=== PATIENT | female | born 1995 | race Hispanic/Latino ===

== ENCOUNTER 2020-07-23 22:20 | Emergency (ER) | payer SELFPAY, OTHER ==
[2020-07-23] MEDS ORDERED: PANTOPRAZOLE 40 MG INJ ONE (23:18)
[2020-07-23] MEDS ORDERED: ONDANSETRON 4 MG/2 ML VIAL ONE (23:18)
[2020-07-24 00:10] LABS: Absolute Lymphocytes (CBC) 2.7 K/uL (0.7-4.9); Hematocrit 39.5 % (36.0-45.0); Lymphocytes % 30.6 % (15.3-44.8); MPV 11.6 fL (7.6-11.3); RBC Red Blood Cell Count 4.83 M/uL (3.86-4.86)
[2020-07-24 00:25] LABS: Albumin 4.5 g/dL (3.4-5.0); Bilirubin Direct 0.3 mg/dL (0-0.2); Potassium 3.2 mmol/L (3.5-5.1); Protein, Total 8.8 g/dL (6.4-8.2)
[2020-07-24] MEDS ORDERED: MAGNE/ALUM HYDROXD 30 ML UCUP ONE (00:30)
[2020-07-24] MEDS ORDERED: LIDOCAINE VISCOUS 2% SOLN 15 ML UDC ONE (00:30)
[2020-07-24 00:44] LABS: Urine Blood NEGATIVE (NEG); Urine Glucose NEGATIVE (NEG); Urine Protein 2+ (NEG); Urine pH 8.5 (5.0-7.0)
[2020-07-24] MEDS ORDERED: NA CHLORIDE 0.9% 1,000 ML ONE (02:05)
--- NOTE | 2020-07-24 02:50 | ER ---
Nurse's Notes [facility] Name: Juany Payne Age: 24 yrs Sex: Female : 1995 Arrival Date: 07/23/2020 Time: 22:22 Bed 8 Private MD: Diagnosis: Vomiting Presentation: 07/23 22:23 Acuity: HARI 3 sg 22:23 Chief complaint: Patient states: Coughing up blood, pink spit, reports chills as well. sg Coronavirus screen: Client denies travel out of the [place] in the last 14 days. cough unrelated to allergies, Client presents with at least one sign or symptom that may indicate coronavirus-19. Standard/surgical mask placed on the client. Provider contacted for isolation considerations. Ebola Screen: Patient negative for fever greater than or equal to 101.5 degrees Fahrenheit, and additional compatible Ebola Virus Disease symptoms Patient denies exposure to infectious person. Patient denies travel to an Ebola-affected area in the 21 days before illness onset. No symptoms or risks identified at this time. Initial Sepsis Screen: Does the patient meet any 2 criteria? No. Patient's initial sepsis screen is negative. Does the patient have a suspected source of infection? No. Patient's initial sepsis screen is negative. Risk Assessment: Do you want to hurt yourself or someone else? Patient reports no desire to harm self or others. Onset of symptoms was July 23, 2020. Care prior to arrival: None. Transition of care: patient was not received from another setting of care. 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 - Social history:: Smoking status: Patient denies any tobacco usage or history of. Screenin:41 Abuse screen: Denies threats or abuse. Denies injuries from another. Nutritional rr5 screening: No deficits noted. Tuberculosis screening: No symptoms or risk factors identified. Fall Risk IV access (20 points). Mental Status- Oriented to own ability (0 pts). Total Adair Fall Scale indicates No Risk (0-24 pts). Assessment: 23:30 General: Appears in no apparent distress. comfortable, Behavior is calm, cooperative, rr5 anxious. Pain: Complains of pain in epigastric area Pain currently is 3 out of 10 on a pain scale. Quality of pain is described as aching, Pain began gradually, Is intermittent. Neuro: Level of Consciousness is awake, alert, obeys commands, Oriented to person, place, time, situation. Cardiovascular: Capillary refill < 3 seconds Patient's skin is warm and dry. Respiratory: Reports cough that is with blood Airway is patent Respiratory effort is even, unlabored, Respiratory pattern is regular, symmetrical. GI: Abdomen is round non-distended, Reports upper abdominal pain, nausea, vomiting. : No signs and/or symptoms were reported regarding the genitourinary system. EENT: No signs and/or symptoms were reported regarding the EENT system. Derm: Skin is intact, is healthy with good turgor, Skin temperature is warm. Musculoskeletal: Circulation, motion, and sensation intact. Capillary refill < 3 seconds. 07/24 00:21 Reassessment: Patient and/or family updated on plan of care and expected duration. Pain rr5 level reassessed. complaints of severe abdominal pain ED provider aware with order made and carried out. 01:13 Reassessment: Patient appears in no apparent distress at this time. resting on side rr5 lying position breathing spontaneously at room air. 02:00 Reassessment: Patient appears in no apparent distress at this time. Patient is alert, rr5 oriented x 3, equal unlabored respirations, skin warm/dry/pink. awaiting for result. 03:06 Reassessment: Patient appears in no apparent distress at this time. Patient is alert, rr5 oriented x 3, equal unlabored respirations, skin warm/dry/pink. discharge instruction given and explained without complaints made. Vital Signs: 07/23 23:15 BP 119 / 74; Pulse 74; Resp 16; Temp 98.6; Pulse Ox 100% ; Pain 3/10; rr5 07/24 00:22 BP 126 / 85; Pulse 70; Resp 19; Pulse Ox 99% ; Pain 10/10; rr5 01:13 BP 110 / 72; Pulse 62; Resp 16; Pulse Ox 99% ; rr5 02:00 BP 116 / 89; Pulse 70; Resp 17; Pulse Ox 98% ; rr5 03:10 BP 115 / 70; Pulse 75; Resp 16; Pulse Ox 99% ; rr5 ED Course: 07/23 22:22 Patient arrived in ED. mr 22:23 Triage completed. sg 22:23 Arm band placed on. sg 22:37 Joe Quarles PA is PHCP. cp 22:37 Epifanio Lawson MD is Attending Physician. cp 22:40 Elmer Chow RN is Primary Nurse. rv 23:30 Inserted saline lock: 20 gauge in right antecubital area, using aseptic technique. rr5 Blood collected. 23:41 Patient has correct armband on for positive identification. Bed in low position. Call rr5 light in reach. Pulse ox on. NIBP on. 07/24 02:04 CT Abd/Pelvis - IV Contrast Only In Process Unspecified. EDMS 03:12 No provider procedures requiring assistance completed. IV discontinued, intact, rr5 bleeding controlled, No redness/swelling at site. Pressure dressing applied. Administered Medications: 07/23 23:30 Drug: Zofran (Ondansetron) 4 mg Route: IVP; Site: right antecubital; rr5 07/24 00:30 Follow up: Response: No adverse reaction rr5 07/23 23:32 Drug: ProTONIX 40 mg Route: IVP; Site: right antecubital; rr5 07/24 00:30 Follow up: Response: No adverse reaction rr5 00:21 Drug: GI Cocktail without - (Maalox Suspension 30 ml, Lidocaine Liquid 2 % 15 rr5 ml) Route: PO; 01:20 Follow up: Response: No adverse reaction rr5 02:05 Drug: NS 0.9% 1000 ml Route: IV; Rate: 1 bolus; Site: right antecubital; rr5 03:12 Follow up: Response: No adverse reaction; IV Status: Completed infusion; IV Intake: rr5 1000ml Intake: 03:12 IV: 1000ml; Total: 1000ml. rr5 Outcome: 02:49 Discharge ordered by . tw4 03:12 Discharged to home ambulatory. rr5 03:12 Condition: stable 03:12 Discharge instructions given to patient, Instructed on discharge instructions, follow up and referral plans. medication usage, Demonstrated understanding of instructions, follow-up care, medications, Prescriptions given X 1. 03:13 Patient left the ED. rr5 Signatures: Dispatcher [employer] EDMS Catalino Hunter, RN RN sg Sheikh, Maryse mr Robina, NAVI Diaz cp, Terrence, MD MD tw4 Elmer Chow, RN RN rv Reynold Ornelas RN RN rr5
--- NOTE | 2020-07-24 02:50 | EDPHYS ---
Physician Documentation [facility] Name: Juany Payne Age: 24 yrs Sex: Female : 1995 Arrival Date: 07/23/2020 Time: 22:22 Bed 8 Private MD: ED Physician Epifanio Lawson HPI: 07/23 22:54 This 24 yrs old Female presents to ER via Ambulatory with complaints of cp Vomiting. 22:54 The patient presents to the emergency department with nausea, with "dry heaves", cp vomiting, that is intermittent, abdominal pain, of the epigastric area. 22:54 Onset: The symptoms/episode began/occurred for past several months. Possible causes: cp diagnosed with gastritis in past. Associated signs and symptoms: Pertinent positives: anorexia, belching, dysphagia to solids, approximately 80 pound weight loss since beginning of year, Pertinent negatives: constipation, diarrhea, fever, GI bleeding. Severity of symptoms: in the emergency department the symptoms are unchanged despite home interventions. 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 - Social history:: Smoking status: Patient denies any tobacco usage or history of. ROS: 22:55 Constitutional: Positive for poor PO intake, weight loss. cp 22:55 Cardiovascular: Negative for chest pain. 22:55 Respiratory: Negative for cough, shortness of breath, wheezing. 22:55 Abdomen/GI: Positive for nausea and vomiting, anorexia, Negative for abdominal pain, diarrhea, constipation, black/tarry stool, rectal bleeding. Exam: 23:00 Constitutional: The patient appears in no acute distress, alert, awake, non-toxic, well cp developed, well nourished. 23:00 Head/Face: Normocephalic, atraumatic. cp 23:00 Eyes: Periorbital structures: appear normal, Conjunctiva: normal, no exudate, no cp injection, Sclera: no appreciated abnormality, Lids and lashes: appear normal, bilaterally. 23:00 ENT: External ear(s): are unremarkable, Nose: is normal, Posterior pharynx: Airway: no evidence of obstruction, patent. 23:00 Chest/axilla: Inspection: normal, Palpation: is normal, no crepitus, no tenderness. cp 23:00 Cardiovascular: Rate: normal, Rhythm: regular, Edema: is not appreciated, JVD: is not appreciated. 23:00 Respiratory: the patient does not display signs of respiratory distress, Respirations: normal, no use of accessory muscles, no retractions, labored breathing, is not present, Breath sounds: are clear throughout, no decreased breath sounds, no wheezing. 23:00 Abdomen/GI: Inspection: abdomen appears normal, Bowel sounds: active, all quadrants, Palpation: soft, in all quadrants, mild abdominal tenderness, in the epigastric area, rebound tenderness, is not appreciated, voluntary guarding, is not appreciated, involuntary guarding, is not appreciated. 23:00 Back: pain, is absent, ROM is normal. 23:00 Skin: no rash present. 23:00 Neuro: Orientation: to person, place \\T\\ time. Mentation: is normal. Vital Signs: 23:15 BP 119 / 74; Pulse 74; Resp 16; Temp 98.6; Pulse Ox 100% ; Pain 3/10; rr5 08 00:22 BP 126 / 85; Pulse 70; Resp 19; Pulse Ox 99% ; Pain 10/10; rr5 01:13 BP 110 / 72; Pulse 62; Resp 16; Pulse Ox 99% ; rr5 02:00 BP 116 / 89; Pulse 70; Resp 17; Pulse Ox 98% ; rr5 03:10 BP 115 / 70; Pulse 75; Resp 16; Pulse Ox 99% ; rr5 MDM: 07/23 22:39 Patient medically screened. 07/24 00:00 Differential diagnosis: Nonspecific abd pain, gastritis, cholecystitis, pancreatitis, cp gastroenteritis. 02:15 Data reviewed: vital signs, nurses notes, lab test result(s), I have discussed the cp patient's presentation/case with the attending Emergency Department Physician;. 02:15 Transition of care: After a detail discussion of the patient's case, care is cp transferred to Epifanio Lawson MD. 07/23 22:57 Order name: Basic Metabolic Panel; Complete Time: 00:52 cp 07/23 22:57 Order name: CBC with Diff; Complete Time: 00:14 cp 07/24 00:15 Interpretation: Normal except: RDW 16.4; MPV 11.6. cp 07/23 22:57 Order name: Hepatic Function; Complete Time: 00:52 cp 07/23 22:57 Order name: Lipase; Complete Time: 00:52 cp 07/23 23:35 Order name: Urine Dipstick--Ancillary (enter results); Complete Time: 00:52 mw2 07/23 23:35 Order name: Urine --Ancillary (enter results); Complete Time: 00:52 mw2 07/23 22:57 Order name: IV Saline Lock; Complete Time: 23:36 cp 07/23 22:57 Order name: Labs collected and sent; Complete Time: 23:36 cp 07/23 22:57 Order name: Urine Dipstick-Ancillary (obtain specimen); Complete Time: 23:36 cp 07/24 00:17 Order name: CT Abd/Pelvis - IV Contrast Only cp 07/23 22:57 Order name: Urine Test (obtain specimen); Complete Time: 23:36 cp Administered Medications: 07/23 23:30 Drug: Zofran (Ondansetron) 4 mg Route: IVP; Site: right antecubital; rr5 07/24 00:30 Follow up: Response: No adverse reaction rr5 07/23 23:32 Drug: ProTONIX 40 mg Route: IVP; Site: right antecubital; rr5 07/24 00:30 Follow up: Response: No adverse reaction rr5 00:21 Drug: GI Cocktail without - (Maalox Suspension 30 ml, Lidocaine Liquid 2 % 15 rr5 ml) Route: PO; 01:20 Follow up: Response: No adverse reaction rr5 02:05 Drug: NS 0.9% 1000 ml Route: IV; Rate: 1 bolus; Site: right antecubital; rr5 03:12 Follow up: Response: No adverse reaction; IV Status: Completed infusion; IV Intake: rr5 1000ml Disposition: 02:48 Co-signature as Attending Physician, Epifanio Lawson MD I agree with the assessment and tw4 plan of care. Disposition: 07/24/20 02:49 Discharged to Home. Impression: Vomiting. - Condition is Stable. - Discharge Instructions: Nausea and Vomiting, Adult. - Prescriptions for Zofran 4 mg Oral Tablet - take 1 tablet by ORAL route every 12 hours As needed; 20 tablet. - Medication Reconciliation Form, Thank You Letter, Antibiotic Education, Prescription Opioid Use form. - Follow up: Private Physician; When: Upon discharge from the Emergency Department; Reason: Recheck today's complaints, Continuance of care, Re-evaluation by your physician. - Problem is new. - Symptoms have improved. Signatures: Dispatcher [employer] EDMS Catalino Hunter RN RN sg Jeo Quarles PA PA cp Wadley, Terrence, MD MD tw4 Reynold Ornelas RN RN rr5 Corrections: (The following items were deleted from the chart) 03:13 02:49 07/24/2020 02:49 Discharged to Home. Impression: Vomiting. Condition is Stable. rr5 Forms are Medication Reconciliation Form, Thank You Letter, Antibiotic Education, Prescription Opioid Use. Follow up: Private Physician; When: Upon discharge from the Emergency Department; Reason: Recheck today's complaints, Continuance of care, Re-evaluation by your physician. Problem is new. Symptoms have improved. tw4
[2020-07-24 03:26] VITALS: TEMP 98.6
[2020-07-24 03:40] VITALS: BP 115/70; O2SAT 99
--- NOTE | 2020-07-24 12:56 | RAD REPORT ---
EXAM DESCRIPTION: CT - Abdomen Pelvis W Contrast - 07/24/2020 6:49 am CLINICAL HISTORY: ABD PAIN TECHNIQUE: Contiguous axial images obtained through the abdomen and pelvis following the uneventful administration of IV contrast. Coronal and sagittal reformatted images were provided. This exam was performed according to our departmental dose-optimization program, which includes autom ated exposure control, adjustment of the mA and/or kV according to patient size and/or use of iterati ve reconstruction technique. COMPARISON: None available for comparison. FINDINGS: Lung bases: Clear Liver: Unremarkable Gallbladder and biliary system: Unremarkable Pancreas: Unremarkable Spleen: Unremarkable Adrenals: Unremarkable Kidneys: Normal renal cortical enhancement. No calculi. No hydronephrosis. Bowel: Moderate stool. No obstruction. No appreciable mucosal thickening. Appendix: Normal caliber appendix. No findings to suggest acute appendicitis. Urinary bladder: Unremarkable Reproductive: Unremarkable as visualized Lymph nodes: No pathologically enlarged lymph nodes. Peritoneum: No focal fluid collection. No free air. Vessels: No abdominal aortic aneurysm. Abdominal wall: Tiny fat-containing umbilical hernia Bones: Multilevel lumbar disc bulges and prominence of the dorsal epidural fat. The central thecal sa c is mildly to moderately narrowed at L2-L3 and to a lesser extent at L4-L5. IMPRESSION: 1. No acute abnormality identified within the abdomen and pelvis. 2. Other findings as above. Electronically signed by: Judi Hudson MD 07/24/2020 2:20 AM CDT Due to temporary technical issues with the PACS/Fluency reporting system, reports are being signed by the in house radiologist without review as a courtesy to ensure prompt reporting. The interpreting r adiologist is fully responsible for the content of the report.
--- OUTSIDE RECORDS SUMMARY | 2020-07-24 22:37 | XMS REPORT | Clinical Summary ---
:[address] [facility] Distr ict Address [facility] [place] [address] Care Team Providers Name Role Phone Unavailable Primary Care Provider Unavailable Allergies No Known Allergies Medications Medication Sig Dispensed Refills Start Date End Date Status norgestimate-ethiny TAKE ONE (1) 0 12/05/2019 Active l estradiol TABLET(S) BY (FEMYNOR) 0.25-35 MOUTH ONCE A mg-mcg per tablet DAY FOR 28 DAYS. TAKE AT THE SAME TIME EACH DAY. famotidine (PEPCID) Take 1 14 tablet 0 01/18/2020 Active 20 mg tablet by tabletIndications: mouth 2 Epigastric pain times daily. acetaminophen-codei Take 1 20 tablet 0 12/21/2017 Discontinued ne (TYLENOL/CODEINE tablet by 0 (Therapy #3) 300-30 mg per mouth every completed) tabletIndications: 4 hours as Acute lymphadenitis needed for Pain. amoxicillin Take 1 20 capsule 0 12/05/2019 d (AMOXIL) 500 mg capsule by 0 capsuleIndications: mouth 2 Streptococcal times daily pharyngitis for 10 days. ondansetron (ZOFRAN Take 1 20 tablet 0 01/18/2020 ODT) 4 mg tablet by 0 disintegrating mouth every tabletIndications: 8 hours as Nausea needed for up to 7 days for Nausea. 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 throat; BMI 40.0-44.9, adult; Encounter to [facility] lab and imaging results; Elevated blood pressure reading without diagnosis of hypertension 12/05/2019 Nurse Triage Amber Jarquin RN 12/04/2019 - Emergency Emergency Medicine Generaliz ed abdominal 12/05/2019 pain (Primary D x) after 07/23/2019 Immunizations Name Administration Dates Next Due Influenza, Seasonal, Injectable 12/05/2019 (Deferred: Contra indication) Social History Tobacco Use Types Packs/Day Years Used Date Never Smoker Smokeless Tobacco: Never Used Tobacco Cessation: Counseling Given: No Alcohol Use Drinks/Week oz/Week Comments No Sex Assigned at Date Recorded Not on file Job Start Date Occupation Industry Not on file Not on file Not on file Travel History Travel Start Travel End No recent travel history available. 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 URINALYSIS STAT 01/18/2020 10:35 Results for this AM CDT procedure are i n the results section. CT ABDOMEN AND STAT 01/18/2020 9:14 Epigastric pain Result s for this PELVIS CONTRAST AM CDT procedure ar e in the results section. POCT URINE DIPSTICK STAT 01/18/2020 8:53 Resu lts for this - AM CDT procedure are i n the results section. BMP POC Routine 01/18/2020 6:48 Results for this AM CDT procedure are i n the results section. CREATININE POC Routine 01/18/2020 6:48 Results f or this AM CDT procedure are i n the results section. D-DIMER STAT 01/18/2020 6:44 Results for this AM CDT procedure are i n the results section. CBC STAT 01/18/2020 6:44 Results for this AM CDT procedure are i n the results section. LIVER PROFILE STAT 01/18/2020 6:44 Results fo r this AM CDT procedure are i n the results section. LIPASE STAT 01/18/2020 6:44 Results for this AM CDT procedure are i n the results section. CBC/DIFF STAT 01/18/2020 6:44 Results for this AM CDT procedure are i n the results section. XRAY CHEST 1 VIEW STAT 01/18/2020 6:28 Shortness of breath Results for this AM CDT procedure are i n the results section. POC GROUP A STREP Routine 12/05/2019 3:40 Sore throat Result s for this SCREEN PM DOG BEHAVIORIST procedure are i n the results section. U/S ABDOMEN LIMITED STAT 12/04/2019 8:18 Generalized Resu lts for this PM DOG BEHAVIORIST abdominal pain procedure are in the results section. URINALYSIS STAT 12/04/2019 5:35 Results for this PM DOG BEHAVIORIST procedure are i n the results section. TEST STAT 12/04/2019 5:35 Results f or this PM DOG BEHAVIORIST procedure are i n the results section. URINALYSIS STAT 12/04/2019 5:35 Results for this PM DOG BEHAVIORIST procedure are i n the results section. BMP POC Routine 12/04/2019 4:51 Results for this PM DOG BEHAVIORIST procedure are i n the results section. CREATININE POC Routine 12/04/2019 4:50 Results f or this PM DOG BEHAVIORIST procedure are i n the results section. CBC STAT 12/04/2019 4:41 Results for this PM DOG BEHAVIORIST procedure are i n the results section. HIV AG/AB COMBO STAT 12/04/2019 4:41 Results for this ROUTINE SCREENING PM DOG BEHAVIORIST procedure are in the results section. LIPASE STAT 12/04/2019 4:41 Results for this PM DOG BEHAVIORIST procedure are i n the results section. LIVER PROFILE STAT 12/04/2019 4:41 Results fo r this PM DOG BEHAVIORIST procedure are i n the results section. CBC/DIFF STAT 12/04/2019 4:41 Results for this PM DOG BEHAVIORIST procedure are i n the results section. after 07/23/2019 Results Urinalysis (01/18/2020 10:35 AM CDT)Only the most recent of2 resultswithin the time period is included. Color Yellow Colorless, Straw, [facility] Yellow Clarity Clear Clear [facility] Spec [place], Ur >1.035 (H) 1.001 - 1.035 [facility] pH, Ur 7.0 5.0 - 8.0 [facility] Protein, Ur Negative Negative mg/dL [facility] Glucose, Ur Negative Negative mg/dL [facility] Ketone, Ur 1+ (A) Negative mg/dL [facility] Bilirubin, Ur Negative Negative mg/dL [facility] Nitrite, Ur Negative Negative [facility] Leukocyte Negative Negative mg/dL [facility] Blood, Ur Negative Negative mg/dL [facility] Urobilinogen, Ur <1.0 <1.0 EU/dL [facility] Specimen Urine Performing Organization Address City/State/Zipcode Phone Number [facility] [address] [place] [address] [phone] ABDOMEN AND PELVIS CONTRAST (01/18/2020 9:14 AM CDT) Specimen Impressions Performed At IMPRESSION: SMS No acute inflammatory process in the abd omen/pelvis. A "PRELIMINARY" report was made availabl e via [employer] at the time of dictation by the resident indicated belo w. If the report is described as "FINALIZED" it indicates the attending/s taff radiologist below has reviewed the images and agrees with the resident's interpretation. Resident: Dr.Vikramjeet Al. Dictated By: Tucker Al MD, 01/18/20 11:01 AM I have reviewed the study and agree with the findings in this report. Signed By: Haider Zambrano MD, 01/18/2020 11 :16 AM Narrative Performed At EXAM: CT Abdomen and Pelvis WITH contras t SMS INDICATION: Abd pain, acute, generalized COMPARISON: Abdominal ultrasound 12/04/19 TECHNIQUE: Abdomen and pelvis were scann ed utilizing a multidetector helical scanner from the lung base to th e pubic symphysis after administration of IV contrast. Coronal a nd sagittal reformations were obtained. Routine protocol was performed . Scan was performed when during portal venous phase. IV CONTRAST: 100 mL of Omnipaque 300 ORAL CONTRAST: Water COMPLICATIONS: None RADIATION DOSE: Total DLP: 1992 mGy*cm Estimated effective dose: (DLP x 0.015 x size factor) mSv CTDIvol has been reviewed. It is below the limits set by the Radiation Protocol Committee (RPC). FINDINGS: LINES and TUBES: None. LOWER THORAX: Unremarkable HEPATOBILIARY: No focal hepatic lesions. No biliary ductal dilation. GALLBLADDER: No radio-opaque stones or s ludge. No wall thickening. SPLEEN: No splenomegaly. Two left upper quadrant splenules. PANCREAS: No focal masses or ductal dila tation. ADRENALS: No adrenal nodules KIDNEYS/URETERS: Kidneys enhance symmetr ically. No hydronephrosis. No cystic or solid mass lesions. No stone s. GI TRACT: No abnormal distention, wall t hickening, or evidence of bowel obstruction. Appendix is normal . PELVIC ORGANS/BLADDER: Bladder is not di stended, limiting evaluation. 1 cm right paraovarian cyst. LYMPH NODES: No lymphadenopathy. VESSELS: Unremarkable. PERITONEUM / RETROPERITONEUM: No free ai r or fluid. BONES: Unremarkable. SOFT TISSUES: Unremarkable. Procedure Note Interface, Rad/Mammog In - 01/18/2020 11 :22 AM CDT EXAM: CT Abdomen and Pelvis WITH contrast INDICATION: Abd pain, acute, generalized COMPARISON: Abdominal ultrasound 12/04/19 TECHNIQUE: Abdomen and pelvis were scann ed utilizing a multidetector helical scanner from the lung base to th e pubic symphysis after administration of IV contrast. Coronal a nd sagittal reformations were obtained. Routine protocol was performed . Scan was performed when during portal venous phase. IV CONTRAST: 100 mL of Omnipaque 30 0 ORAL CONTRAST: Water COMPLICATIONS: None RADIATION DOSE: Total DLP: 1992 mGy*cm Estimated effective dose: (DLP x 0. 015 x size factor) mSv CTDIvol has been reviewed. It is be low the limits set by the Radiation Protocol Committee (RPC). FINDINGS: LINES and TUBES: None. LOWER THORAX: Unremarkable HEPATOBILIARY: No focal hepatic les ions. No biliary ductal dilation. GALLBLADDER: No radio-opaque stones or s ludge. No wall thickening. SPLEEN: No splenomegaly. Two left upper quadrant splenules. PANCREAS: No focal masses or ductal dila tation. ADRENALS: No adrenal nodules KIDNEYS/URETERS: Kidneys enhance symmetr ically. No hydronephrosis. No cystic or solid mass lesions. No stones . GI TRACT: No abnormal distention, wall t hickening, or evidence of bowel obstruction. Appendix is normal. PELVIC ORGANS/BLADDER: Bladder is not di stended, limiting evaluation. 1 cm right paraovarian cyst. LYMPH NODES: No lymphadenopathy. VESSELS: Unremarkable. PERITONEUM / RETROPERITONEUM: No free ai r or fluid. BONES: Unremarkable. SOFT TISSUES: Unremarkable. IMPRESSION IMPRESSION: No acute inflammatory process in the abd omen/pelvis. A "PRELIMINARY" report was made availabl e via [employer] at the time of dictation by the resident indicated jaciel oconnell. If the report is described as "FINALIZED" it indicates the attending/s taff radiologist below has reviewed the images and agrees with the resident's interpretation. Resident: Dr.Vikramjeet Al. Dictated By: Tucker Al MD, 01/18/20 11:01 AM I have reviewed the study and agree with the findings in this report. Signed By: Haider Zambrano MD, 01/18/2020 11 :16 AM Performing Organization Address City/State/Zipcode Phone Number [facility] POCT Urine - (01/18/2020 8:53 AM CDT) Pathologist Sig nature Control present negative POCT CREATININE POC docked device (01/18/2020 6:48 AM CDT)Only the most recent of2 resultswithin the time period is included. Creatinine POC 0.7Comment: 017 0.6 - 1.3 mg/dL [facility] GFR, Estimated >90 >=90 [facility] mL/min/1.73 m2 Specimen Blood, venous Performing Organization Address City/State/Zipcode Phone Number [facility] [address] [place] [address] POCT BMP POC docked device (01/18/2020 6:48 AM CDT)Only the most recent of2 resultswithin the time period is included. Sodium POC 139 136 - 145 [facility] mmol/L Potassium POC 4.4 3.5 - 5.1 [facility] mmol/L Chloride POC 101 98 - 107 [facility] mmol/L TCO2 POC 31Comment: --- 21 - 32 mmol/L [facility] Urea Nitrogen POC 5 (L) 7 - 18 mg/dL [facility] Glucose POC 141 (H) 74 - 106 mg/dL [facility] Hemoglobin POC 15.3 12 - 16 g/dL [facility] Hematocrit POC 45.0 37.0 - 47.0 % [facility] Specimen Blood, venous Performing Organization Address City/State/Zipcode Phone Number [facility] [address] [place] [address] CBC/Diff (01/18/2020 6:44 AM CDT)Only the most recent of2 resultswithin the time period is included. WBC 12.0 (H) 4.5 - 11.0 K/uL [facility] RBC 5.42 (H) 4.20 - 5.40 [facility] M/uL Hemoglobin 13.8 12.0 - 16.0 [facility] g/dL Hematocrit 43.8 37.0 - 47.0 % [facility] MCV 80.8 (L) 82.0 - 92.0 fL [facility] MCH 25.5 (L) 27.0 - 32.0 pg [facility] MCHC 31.5 (L) 32.0 - 36.0 [facility] g/dL RDW 47.6 (H) 36.4 - 46.3 fL [facility] Platelet 252 150 - 400 K/uL [facility] Mean Platelet Volume 13.1 (H) 9.4 - 12.4 fL [facility] Percent NRBC 0.0 % [facility] Neutrophil 74.8 (H) 34.0 - 70.0 % [facility] Lymphs 18.9 (L) 20.0 - 50.0 % [facility] Monocytes 5.1 5.0 - 12.0 % [facility] Eos 0.1 (L) 0.7 - 5.0 % [facility] Basos 0.5 0.1 - 1.2 % [facility] Immature Granulocytes 0.6 (H) 0.0 - 0.5 % [facility] Neutrophils (Absolute) 9.01 (H) 1.56 - 6.13 [facility] K/uL Lymphs (Absolute) 2.27 1.18 - 3.74 [facility] K/uL Monocytes(Absolute) 0.62 (H) 0.24 - 0.36 [facility] K/uL Eos (Absolute) 0.01 (L) 0.04 - 0.36 [facility] K/uL Baso (Absolute) 0.06 0.01 - 0.08 [facility] K/uL Immature Grans (Abs) 0.07 (H) 0.00 - 0.03 [facility] K/uL Absolute NRBC 0.00 K/uL [facility] Specimen Blood Performing Organization Address [facility] Phone Number [facility] [address] [place] [address] Liver Profile (01/18/2020 6:44 AM CDT)Only the most recent of2 resultswithin the time period is included. Pathologist Sig nature Total Protein 8.4 (H) 6.0 - 8.3 g/dL [facility] Bilirubin, Total 0.7 0.2 - 1.2 mg/dL [facility] Alkaline Phosphatase 61 34 - 104 U/L [facility] AST 81 (H) 13 - 39 U/L [facility] Direct Bilirubin 0.1 0.0 - 0.2 mg/dL [facility] ALT 136 (H) 7 - 52 U/L [facility] Albumin 5.0 3.7 - 5.3 g/dL [facility] Specimen Blood Performing Organization Address [facility] Phone Number [facility] [address] [place] [address] Lipase (01/18/2020 6:44 AM CDT)Only the most recent of2 resultswithin the time period is included. Pathologist Sig nature Lipase 16 11 - 82 U/L [facility] Specimen Blood Performing Organization Address [facility] Phone Number [facility] [address] [place] [address] D-Dimer (01/18/2020 6:44 AM CDT) D-Dimer 0.22Comment: Values of 0.22 - 0.48 [facility] quantitative D-Dimer ug/mL FEU less than 0.40 ug/mL FEU have been reported to be associated with a low probability of deep vein thrombosis/pulmonary embolism. This test alone should not be used to rule out DVT/PE. Specimen Blood Performing Organization Address City/State/Zipcode Phone Number [facility] [address] [place] [address] [phone] XRAY CHEST 1 VIEW (01/18/2020 6:28 AM CDT) Specimen Impressions Performed At IMPRESSION: SMS No acute cardiopulmonary process. If the report is "FINALIZED" it indicate s that the attending/staff radiologist has reviewed the images and agrees with the resident's interpretation. Dictated By: Sidney Tirado DO, 01/18/2020 6:57 AM I have reviewed the study and agree with the findings in this report. Signed By: Julia Cooper, 01/18/2020 6:5 8 AM Narrative Performed At EXAM: XRAY CHEST 1 VIEW, 0644 hours SMS INDICATION: SOB COMPARISON: None FINDINGS: AP view. TUBES and LINES: None. LUNGS: Low lung volumes. No infiltrate o r interstitial edema. No nodules. PLEURA: No pleural effusion or pneumotho rax. HEART AND MEDIASTINUM: The cardiac silho uette size is normal. The remainder of the mediastinum is unremark able. BONES AND SOFT TISSUES: No focal osseous lesion. Soft tissues are unremarkable. UPPER ABDOMEN: No free air under the kaylyn phragm. Procedure Note Interface, Rad/Mammog In - 01/18/2020 7 :03 AM CDT EXAM: XRAY CHEST 1 VIEW, 0644 hours INDICATION: SOB COMPARISON: None FINDINGS: AP view. TUBES and LINES: None. LUNGS: Low lung volumes. No infiltrate o r interstitial edema. No nodules. PLEURA: No pleural effusion or pneumotho rax. HEART AND MEDIASTINUM: The cardiac silho uette size is normal. The remainder of the mediastinum is unremark able. BONES AND SOFT TISSUES: No focal osseous lesion. Soft tissues are unremarkable. UPPER ABDOMEN: No free air under the kaylyn phragm. IMPRESSION IMPRESSION: No acute cardiopulmonary process. If the report is "FINALIZED" it indicate s that the attending/staff radiologist has reviewed the images and agrees with the resident's interpretation. Dictated By: Sidney Tirado DO, 01/18/2020 6:57 AM I have reviewed the study and agree with the findings in this report. Signed By: Julia Cooper, 01/18/2020 6:5 8 AM Performing Organization Address City/State/Zipcode Phone Number [facility] POC GROUP A STREP SCREEN (12/05/2019 3:40 PM DOG BEHAVIORIST) Pathologist Sig nature Group A Strep POC Positive Neg - Neg GAS (Contr) Pass Pass - Pass Specimen Throat U/S ABDOMEN LIMITED (12/04/2019 8:18 PM DOG BEHAVIORIST) Specimen Impressions Performed At IMPRESSION: SMS Hepatic steatosis. Otherwise, normal son ogram. If the report is "FINALIZED" it indicate s that the attending/staff radiologist has reviewed the images and agrees with the resident's interpretation. Dictated By: Angeles Calle MD, 12/04/2019 8:5 6 PM I have reviewed the study and agree with the findings in this report. Signed By: Cesar Bhatia MD, 12/04/2019 1 0:12 PM Narrative Performed At EXAM: Right Upper Quadrant Ultrasound [facility] INDICATION: abd pain, elevated LFTs COMPARISON: None. TECHNIQUE: Transverse and longitudinal i mages of the right upper abdomen were obtained. FINDINGS: Liver: Size: 15.5 cm in the right midcla vicular line, normal in size. Appearance: Increased echogenicit y, smooth contour. Mass: No focal masses. Gallbladder: Stones/Sludge: Low-level internal echoes at the gallbladder fundus are related to side lobe artifact. No sl udge or gallstones. Wall: 0.3 cm. Appearance: 0.2 Sonographic Goss's Sign: Negati ve. Bile Ducts: Intrahepatic Ducts: No dilatation . Extrahepatic Ducts: Common bile d uct measures 0.5 cm, no dilatation. Pancreas: Incompletely visualized due to ov erlying bowel gas, but no abnormality identified involving the vis ualized portions of the pancreas. Right Kidney: Size: 11.1 cm (in length). Echogenicity: Normal. Parenchymal thickness: Normal. Collecting System: No hydronephro sis. Stone: None. Cyst/Mass: None. Vessels: Aorta: Visualized portions are no rmal. Inferior Vena Cava: Visualized po rtions are normal. Main Portal Vein: 0.8 cm, normal in size with hepatopetal flow. Free Fluid: No ascites or pleural effusion. Procedure Note Interface, Rad/Mammog In - 12/04/2019 10 :17 PM DOG BEHAVIORIST EXAM: Right Upper Quadrant Ultrasound INDICATION: abd pain, elevated LFTs COMPARISON: None. TECHNIQUE: Transverse and longitudinal i mages of the right upper abdomen were obtained. FINDINGS: Liver: Size: 15.5 cm in the right midclavi cular line, normal in size. Appearance: Increased echogenicity, smooth contour. Mass: No focal masses. Gallbladder: Stones/Sludge: Low-level internal e choes at the gallbladder fundus are related to side lobe artifact. No sl udge or gallstones. Wall: 0.3 cm. Appearance: 0.2 Sonographic Goss's Sign: Negative . Bile Ducts: Intrahepatic Ducts: No dilatation. Extrahepatic Ducts: Common bile danial t measures 0.5 cm, no dilatation. Pancreas: Incompletely visualized due to over lying bowel gas, but no abnormality identified involving the vis ualized portions of the pancreas. Right Kidney: Size: 11.1 cm (in length). Echogenicity: Normal. Parenchymal thickness: Normal. Collecting System: No hydronephrosi s. Stone: None. Cyst/Mass: None. Vessels: Aorta: Visualized portions are norm al. Inferior Vena Cava: Visualized port ions are normal. Main Portal Vein: 0.8 cm, normal in size with hepatopetal flow. Free Fluid: No ascites or pleural effusion. IMPRESSION IMPRESSION: Hepatic steatosis. Otherwise, normal son ogram. If the report is "FINALIZED" it indicate s that the attending/staff radiologist has reviewed the images and agrees with the resident's interpretation. Dictated By: Angeles Calle MD, 12/04/2019 8:5 6 PM I have reviewed the study and agree with the findings in this report. Signed By: Cesar Bhatia MD, 12/04/2019 1 0:12 PM Performing Organization Address City/[facility]/Zipcode Phone Number SMS Test (Lab UPREGB) (12/04/2019 5:35 PM DOG BEHAVIORIST) Pathologist Sig nature Negative Negative [facility] Specimen Urine Performing Organization Address City/[facility]/Zipcode Phone Number [facility] [address] [place] [address] HIV: unless the patient is HIV positive (12/04/2019 4:41 PM DOG BEHAVIORIST) Pathologist Sig nature HIV Ag/Ab Combo Negative Negative [facility] Specimen Blood Performing Organization Address City/State/Zipcode Phone Number [facility] [address] [place] [address] after 07/23/2019
--- OUTSIDE RECORDS SUMMARY | 2020-07-24 22:38 | XMS REPORT | Continuity of Care Document ---
:1995 Demographics Address [address] [place] [address] Work Phone Mobile Phone Preferred Language Dutch Marital Status Unknown Judaism Affiliation Unknown Race Unknown Additional Race(s) Unavailable Ethnic Group Unknown Author Organization [facility] t Address [address] [place] [address] Support Name Relationship Address Phone Phoebe West Sister [address] [facility] [phone] [place] [address] Adelita Payne Mother Unavailable Care Team Providers Name Role Phone Christopher JUAN, Min Attending Clinician Liliya ADMINISTRATIVE SUPPORT COORDINATOR, Lucero Valiente Attending Clinician Britton POLK, Dilia Attending Clinician Unavailable Problems Condition Condition Condition Status Onset Resolution Last Treating Co mments Source Name Details Category Date Date Treatment Clinician Date Skull mass Skull mass Disease Active [facility] Epigastric Epigastric Disease Active [facility] pain pain Health Shortness Shortness Disease Active Jeffery ris of breath of breath Allergies, Adverse Reactions, Alerts This patient has no known allergies or adverse reactions. Social History Social Habit Start Date Stop Date Quantity Comments Source Sex Assigned At [place] [facility] Alcohol intake 2019-12-05 2019-12-05 Current [facility] 00:00:00 00:00:00 non-drinker of alcohol (finding) Smoking Status Start Date Stop Date Source Never smoker [facility] Medications Ordered Filled Start Stop Current Ordering Indication Dosage Frequency Signature Comments Components Source Medication Medication Date Date Medication? Clinician (SIG) Name Name famotidine Yes Epigastric 20mg Q.5D Take 1 Lee (PEPCID) 20 4-03 pain tablet by [facility] mg tablet 00:00: mouth 2 00 times daily. ondansetron 2020- No Nausea 4mg Take 1 H arris (ZOFRAN 4-03 04-10 tablet by [facility] ODT) 4 mg 00:00: 23:59 mouth disintegrat 00 :00 every 8 ing tablet hours as needed for up to 7 days for Nausea. norgestimat Yes TAKE ONE Mai rris e-ethinyl 12-05 (1) [facility] estradiol 00:00: TABLET(S) (FEMYNOR) 00 BY MOUTH 0.25-35 ONCE A DAY mg-mcg per FOR 28 tablet DAYS. TAKE AT THE SAME TIME EACH DAY. amoxicillin 2019- No Streptococc 500mg Q.5D Take 1 [place] (AMOXIL) 12-05 al capsule by [facility] 500 mg 00:00: 23:59 pharyngitis mouth 2 capsule 00 :00 times daily for 10 days. acetaminoph 2019- No Acute 1{tbl} Take 1 [place] en-codeine 12-21 lymphadenit tablet by [facility] (TYLENOL/CO 00:00: 00:00 is mouth DEINE #3) 00 :00 every 4 300-30 mg hours as per tablet needed for Pain. Vital Signs Vital Name Observation Time Observation Value Comments Source Systolic blood pressure 2020-01-18 12:16:00 120 mm[Hg] [facility] Diastolic blood pressure 2020-01-18 12:16:00 64 mm[Hg] [facility] Heart rate 2020-01-18 12:16:00 85 /min [facility] Body temperature 2020-01-18 12:16:00 36.89 V[place] [facility] Respiratory rate 2020-01-18 12:16:00 18 /min [facility] Oxygen saturation in 2020-01-18 12:16:00 97 /min [facility] Arterial blood by Pulse oximetry Body height 2019-12-05 14:47:00 165.1 cm [facility] Body weight 2019-12-05 14:47:00 122.018 kg [facility] BMI 2019-12-05 14:47:00 44.76 kg/m2 [facility] Procedures Procedure Date / Time Performed Performing Clinician [facility] e URINALYSIS 2020-01-18 10:35:00 Myriam Stanton [facility] URINALYSIS 2020-01-18 10:35:00 [facility] 2020-01-18 09:14:41 Min [facility] CONTRAST POCT URINE DIPSTICK - 2020-01-18 08:53:00 Myriam Stanton [facility] CREATININE POC 2020-01-18 06:48:00 Min [place] [facility] BMP POC 2020-01-18 06:48:00 Christopher Min [facility] CBC/DIFF 2020-01-18 06:44:00 Myriam Stanton [facility] h LIPASE 2020-01-18 06:44:00 Myriam Stanton [facility] LIVER PROFILE 2020-01-18 06:44:00 Myriam Stanton [facility] h CBC 2020-01-18 06:44:00 Myriam Stanton [facility] D-DIMER 2020-01-18 06:44:00 Christopher Min [facility] XRAY CHEST 1 VIEW 2020-01-18 06:28:00 Myriam Stanton [facility] lt POC GROUP A STREP SCREEN 2019-12-05 15:40:00 [facility] 2019-12-04 20:18:00 Bre Hall [facility] URINALYSIS 2019-12-04 17:35:00 Bre Hall [facility] lt TEST 2019-12-04 17:35:00 Bre Hall [facility] lt URINALYSIS 2019-12-04 17:35:00 Bre Hall [facility] lt BMP POC 2019-12-04 16:51:00 Unknown, Provider Jesus Rend[facility] CREATININE POC 2019-12-04 16:50:00 Unknown, Provider Jesus Rendon [facility] CBC/DIFF 2019-12-04 16:41:00 Bre Hall [facility] lt LIVER PROFILE 2019-12-04 16:41:00 Bre Hall [facility] lt LIPASE 2019-12-04 16:41:00 Bre Hall [facility] lt HIV AG/AB COMBO ROUTINE 2019-12-04 16:41:00 Bre Hall [facility] SCREENING CBC 2019-12-04 16:41:00 [facility] lt Plan of Care Planned Activity Planned Date Details Comments Source Future Scheduled Test 2020-07-17 00:00:00 IMM Influenza [facility] Seasonal Jul to December (>/= 19 yrs) [code = IMM Influenza Seasonal Jul to December (>/= 19 yrs)] Future Scheduled Test 2015 00:00:00 Screening for [facility] malignant neoplasm of cervix (procedure) [code = 744101271] Encounters Start End Encounter Admission Attending Care Care Encounter Source Date/Time Date/Time Type Type Clinicians Facility Department ID 2018-01-02 2018-01-02 Outpatient [facility] [id number] [place] 00:00:00 00:00:00 Health 2017-12-21 2017-12-21 Emergency [facility] [id number] 6 [place] 13:29:05 13:29:05 Health 2017-12-21 2017-12-21 Emergency [facility] [id number] 8 [place] 11:36:16 11:36:16 Health Results Test Description Test Time Test Comments Results Result Comments Source Urinalysis 2020-01-18 11:25:00 Test Item Value Reference Range Interpretation Comme nts Color (test code = 74950052) Yellow Colorless, Straw, Yellow Clarity (test code = 96806640) Clear Clear Spec Zachary, Ur (test code = 20488080) >1.035 1.001-1.035 H pH, Ur (test code = 87960718) 7.0 5.0-8.0 Protein, Ur (test code = 19778342) Negative Negative mg/dL Glucose, Ur (test code = 38929805) Negative Negative mg/dL Ketone, Ur (test code = 71463702) 1+ Negative mg/dL A Bilirubin, Ur (test code = 62431828) Negative Negative mg/dL Nitrite, Ur (test code = 53527067) Negative Negative Leukocyte (test code = 22923324) Negative Negative mg/dL Blood, Ur (test code = 81276565) Negative Negative mg/dL Urobilinogen, Ur (test code = 15781853) <1.0 <1.0 EU/dL Lab Interpretation (test code = 69384-3) [facility] [id number] 11:16:54IMPRESSION: No acute inflammatory process in the abdomen/pelvis. A "PRELIMINARY" report was made available via [employer] at the time ofdictation by the resident indicated below. If the report is describedas"FINALIZED" it indicates the attending/staff radiologist below hasreviewed the images and agrees with the resident's interpretation. Resident: Dr.Vikramjeet Al. Dictated By: Tucker Al MD, 01/18/2020 11:01 AM I have reviewed the study and agree with the findings in this report. Signed By: Haider Zambrano MD, 01/18/2020 11:16 AM Interface, Rad/Mammog In - 01/18/2020 11:22 AM CDTEXAM: CT Abdomen and Pelvis WITH contrast INDICATION: Abd pain, acute, generalized COMPARISON: Abdominal ultrasound 12/04/2019 TECHNIQUE: Abdomen and pelvis were scanned utilizing a multidetectorhelical scanner from thelung base to the pubic symphysis afteradministration of IV contrast. Coronal and sagittal reformations wereobtained. Routine protocol was performed. Scan was performed when duringportal venous phase. IV CONTRAST: 100 mL of Omnipaque 300 ORAL CONTRAST: Water COMPLICATIONS: NoneRADIATION DOSE: Total DLP: 1992 mGy*cm Estimated effective dose: (DLP x 0.015 x size factor) mSv CTDIvol has been reviewed. It is below the limits set by theRadiation Protocol Committee (RPC).FINDINGS:LINES and TUBES: None.LOWER THORAX: UnremarkableHEPATOBILIARY: No focal hepatic lesions. No biliary ductaldilation. GALLBLADDER: No radio-opaque stones or sludge. No wall thickening.SPLEEN: No splenomegaly. Two left upper quadrant splenules.PANCREAS: No focal masses or ductal dilatation. ADRENALS: No adrenal nodules KIDNEYS/URETERS: Kidneys enhance symmetrically. No hydronephrosis. Nocystic or solid mass lesions. No stones.GI TRACT: No abnormal distention, wall thickening, or evidence of bowelobstruction. Appendix is normal.PELVIC ORGANS/BLADDER: Bladder is not distended,limiting evaluation. 1cm right paraovarian cyst.LYMPH NODES: No lymphadenopathy.VESSELS: Unremarkable .PERITONEUM / RETROPERITONEUM: No free air or fluid.BONES: Unremarkable.SOFT TISSUES: Unremarkable. IMPRESSIONIMPRESSION: No acute inflammatory process in the abdomen/pelvis.A "PRELIMINARY" report was made available via [employer] at the time ofdictation by the resident indicated below. If the report is described as"FINALIZED" it indicates the attending/staff radiologist below hasreviewed the images and agrees with the resident's interpretation.Resident: Dr.Vikramjeet Al.Dictated By: Tucker Lopez, 01/18/2020 11:01 AMI have reviewed the study and agree with the findings in this report.Signed By:Haider Zambrano MD, 01/18/2020 11:16 [facility] Urine - [id number] 08:53:00 Test Item Value Reference Range Interpretation Comments Control (test code = 7172) present (test code = 7173) negative Lab Interpretation (test code = Normal 53387-4) [facility] [id number] 07:50:00 Test Item Value Reference Range Interpretation Comments Lipase (test code = 21148208) 16 U/L 11-82 Lab Interpretation (test code = Normal 09832-2) [facility] HospitalLiver [id number] 07:50:00 Test Item Value Reference Range Interpretation Comments Bilirubin, Total (test code = 0.7 mg/dL 0.2-1.2 H 2885-2) Alkaline Phosphatase (test code = 61 U/L 34-104 31989316) AST (test code = 60272264) 81 U/L 13-39 H Direct Bilirubin (test code = 0.1 mg/dL 0-0.2 1968-7) ALT (test code = 15878138) 136 U/L 7-52 H Albumin (test code = 71227-8) 5.0 g/dL 3.7-5.3 Lab Interpretation (test code = Abnormal 24518-5) [facility] HospitalNoomtuF-[id number] 07:47:00 Test Item Value Reference Range Interpretation Comments D-Dimer (test code = 0.22 0.22- 0.48 ug/mL Beatrice ues of 68180841) FEU quantitative D- Dimer less than 0.40 ug/mL FEU have been reported to be associated with a low probability of deep vein thrombosis/pulm onary embolism. This test alone should no t be used to rule ou t DVT/PE. Lab Interpretation (test Normal code = 69416-2) [facility] HospitalCBC/[id number] 07:27:00 Test Item Value Reference Range Interpretation Comments WBC (test code = 6690-2) 12.0 K/uL 4.5-11 H RBC (test code = 789-8) 5.42 4.20- 5.40 M/uL H Hemoglobin (test code = 718-7) 13.8 g/dL 12-16 Hematocrit (test code = 4544-3) 43.8 % 37-47 MCV (test code = 787-2) 80.8 fL 82-92 L MCH (test code = 785-6) 25.5 pg 27-32 L MCHC (test code = 786-4) 31.5 g/dL 32-36 L RDW (test code = 25975-8) 47.6 fL 36.4-46.3 H Platelet (test code = 777-3) 252 K/uL 150-400 Mean Platelet Volume (test code = 13.1 fL 9.4-12.4 H 60949-5) Percent NRBC (test code = 56166989) 0.0 % Neutrophil (test code = 770-8) 74.8 % 34-70 H Lymphs (test code = 736-9) 18.9 % 20-50 L Monocytes (test code = 5905-5) 5.1 % 5-12 Eos (test code = 713-8) 0.1 % 0.7-5 L Basos (test code = 706-2) 0.5 % 0.1-1.2 Immature Granulocytes (test code = 0.6 % 0-0.5 H 58821014) Neutrophils (Absolute) (test code = 9.01 K/uL 1.56-6.13 H 13081759) Lymphs (Absolute) (test code = 2.27 K/uL 1.18-3.74 97675855) Monocytes(Absolute) (test code = 0.62 K/uL 0.24-0.36 H 13063069) Eos (Absolute) (test code = 0.01 K/uL 0.04-0.36 L 33651157) Baso (Absolute) (test code = 0.06 K/uL 0.01-0.08 27040265) Immature Grans (Abs) (test code = 0.07 K/uL 0-0.03 H 35753774) Absolute NRBC (test code = 0.00 K/uL 16577179) Lab Interpretation (test code = Abnormal 85574-6) [facility] BMP POC docked [id number] 07:22:00 Test Item Value Reference Range Interpretation Comments Sodium POC (test code = 70427452) 139 mmol/L 136-145 Potassium POC (test code = 4.4 mmol/L 3.5-5.1 23741548) Chloride POC (test code = 101 mmol/L 98-107 97682675) TCO2 POC (test code = 01875927) 31 mmol/L 21-32 --- Urea Nitrogen POC (test code = 5 mg/dL 7-18 L 36851499) Glucose POC (test code = 43690938) 141 mg/dL 74-106 H Hemoglobin POC (test code = 15.3 g/dL 12-16 00499972) Hematocrit POC (test code = 45.0 % 37-47 07983800) Lab Interpretation (test code = Abnormal 10872-8) [facility]ST 1 [id number] 06:58:12IMPRESSION: No acute cardiopulmonary process. If the report is "FINALIZED" it indicates that the att ending/staffradiologist has reviewed the images and agrees with the resident'sinterpretation. Dictated By: Sidney Tirado DO, 01/18/2020 6:57 AM I have reviewed the study and agree with the findings in this report. Signed By: Julia Cooper 01/18/2020 6:58 AM Interface, Rad/Mammog In - 01/18/2020 7:03 AM CDTEXAM: XRAY CHEST 1 VIEW, 0644 hours INDICATION: SOB COMPARISON: None FINDINGS: AP view.TUBES and LINES: None.LUNGS: Low lung volumes. No infiltrate or interstitial edema. Nonodules.PLEURA: No pleural effusion or pneumothorax.HEART AND MEDIASTINUM: The cardiac silhouette size is normal. Theremainder of the mediastinum is unremarkable.BONES AND SOFT TISSUES: No focal osseous lesion. Soft tissuesareunremarkable.UPPER ABDOMEN: No free air under the diaphragm.IMPRESSIONIMPRESSION: No acute cardiopulmonary process.If the report is "FINALIZED" it indicates that the attending/staffradiologist has reviewed the images and agrees with the resident'sinterpretation.Dictated By: Sidney Tirado DO, 01/18/2020 6:57 AMI have reviewed the study and agree with the findings in this report.Signed By: Julia Cooper 01/18/2020 6:58 [facility] CREATININE POC docked [id number] 06:51:00 Test Item Value Reference Range Interpretation Comments Creatinine POC (test code = 0.7 mg/dL 0.6-1.3 017 21577540) GFR, Estimated (test code = >90 >=90 mL/min/1.73 m2 83204558) Lab Interpretation (test code = Normal 77323-3) [facility] GROUP A STREP [id number] 15:47:00 Test Item Value Reference Range Interpretation Comments Group A Strep POC (test code = 8167) Positive Neg - Neg GAS (Contr) (test code = 8166) Pass Pass - Pass [facility] ABDOMEN [id number] 22:12:44IMPRESSION:Hepatic steatosis. Otherwise, normal sonogram. If the report is "FINALIZED" it indicatesthat the attending/staffradiologist has reviewed the images and agrees with the resident'sinterpretation. Dictated By: Angeles Calle MD, 12/04/2019 8:56 PM I have reviewed the study and agree with the findings in this report. Signed By: Cesar Bhatia MD, 12/04/2019 10:12 PM Interface, Rad/Mammog In - 12/04/2019 10:17 PM CSTEXAM: Right Upper Quadrant UltrasoundINDICATION: abd pain, elevated LFTs COMPARISON: None. TECHNIQUE: Transverse and longitudinal images of the right upper abdomenwere obtained. FINDINGS: Liver: Size: 15.5 cm in the right midclavicular line, normal in size. Appearance: Increased echogenicity, smooth contour. Mass: No focal masses.Gallbladder: Stones/Sludge: Low-level internal echoes at the gallbladder fundusare related to side lobe artifact. No sludge or gallstones. Wall: 0.3 cm. Appearance: 0.2 Sonographic Goss's Sign: Negative.Bile Ducts: Intrahepatic Ducts: No dilatation. Extrahepatic Ducts: Common bile duct measures 0.5 cm, nodilatation.Pancreas: Incompletely visualized due to overlying bowel gas, but noabnormality identified involving the visualized portions of thepancreas.Right Kidney: Size: 11.1 cm (in length). Echogenicity: Normal. Parenchymal thickness: Normal. Collecting System: No hydronephrosis. Stone: None. Cyst/Mass: None.Vessels: Aorta: Visualized portions are normal. Inferior Vena Cava: Visualized portions are normal. Main Portal Vein: 0.8 cm, normal in size with hepatopetal flow.Free Fluid: No ascites or pleural effusion.IMPRESSIONIMPRESSION:Hepatic steatosis. Otherwise, normal sonogram.If the report is "FINALIZED" it indicates that the attending/staffradiologist has reviewed the images and agrees with the resident'sinterpretation.Dictated By: Angeles Calle MD, 12/04/2019 8:56 PMI have reviewed the study and agree with the findings in this report.Signed By: Cesar Bhatia MD,12/04/2019 10:12 PMNorth[facility] HospitalHIV: unless the patient is HIV positive 2019-12-04 18:02:00 Test Item Value Reference Range Interpretation Comments HIV Ag/Ab Combo (test code = Negative Negative 36962-1) Lab Interpretation (test code = Normal 74909-7) [facility] HospitalPregnancy Test (Lab UPREGB)2019-12-04 17:46:00 Test Item Value Reference Range Interpretation Comments (test code = 97498142) Negative Negative Lab Interpretation (test code = Normal 45194-0) [facility]
== END 2020-07-24 03:13 | disposition home or self-care (01) ==
LOC: ER 22:20
DX: R11.10 Vomiting, unspecified (principal)
CPT/HCPCS: 36415; 74177; 80048; 80076; 81003; 81025; 83690; 85025; 96361; 96374; 96375; 99284; C9113; J2405; J7030; Q9967

== ENCOUNTER 2020-10-08 18:48 | Emergency (ER) | payer SELFPAY ==
--- OUTSIDE RECORDS SUMMARY | 2020-10-08 18:51 | XMS REPORT | Continuity of Care Document ---
:1995 Demographics Address [address] [place] [address] Work Phone Mobile Phone Email Address DECLINE 07/23/20 Preferred Language Togolese Marital Status Unknown Mormon Affiliation Unknown Race Unknown Additional Race(s) Unavailable Ethnic Group Unknown Author Organization [facility] t Address [address] [place] [address] Support Name Relationship Address Phone Phoebe West Sister [address] [facility] [phone] [place] [address] Adelita Payne Mother Unavailable Care Team Providers Name Role Phone Christopher JUAN, Min Attending Clinician Liliya MANAGER SHIPPING, Lucero Valiente Attending Clinician Britton POLK, Dilia Attending Clinician Unavailable Problems Condition Condition Condition Status Onset Resolution Last Treating Co mments Source Name Details Category Date Date Treatment Clinician Date Skull mass Skull mass Disease Active [facility] Epigastric Epigastric Disease Active [facility] pain pain Health Shortness Shortness Disease Active Jeffery ris of breath of breath Heal th Allergies, Adverse Reactions, Alerts This patient has no known allergies or adverse reactions. Social History Social Habit Start Date Stop Date Quantity Comments Source Sex Assigned At [facility] Tobacco use and 2019-12-05 2019-12-05 Never used [facility]th exposure 00:00:00 00:00:00 Alcohol intake 2019-12-05 2019-12-05 Current [place] [facility] 00:00:00 00:00:00 non-drinker of alcohol (finding) Smoking Status Start Date Stop Date Source Never smoker [facility] Medications Ordered Filled Start Stop Current Ordering Indication Dosage Frequency Signature Comments Components Source Medication Medication Date Date Medication? Clinician (SIG) Name Name famotidine Yes Epigastric 20mg Q.5D Take 1 [place] (PEPCID) 20 4-03 pain tablet by [facility] mg tablet 00:00: mouth 2 00 times daily. ondansetron 2020-0 2020- No Nausea 4mg Take 1 H arris (ZOFRAN 4-03 04-10 tablet by [facility] ODT) 4 mg 00:00: 23:59 mouth disintegrat 00 :00 every 8 ing tablet hours as needed for up to 7 days for Nausea. norgestimat Yes TAKE ONE Mai rris e-ethinyl 12-05 (1) Health estradiol 00:00: TABLET(S) (FEMYNOR) 00 BY MOUTH 0.25-35 ONCE A DAY mg-mcg per FOR 28 tablet DAYS. TAKE AT THE SAME TIME EACH DAY. amoxicillin 2019- No Streptococc 500mg Q.5D Take 1 [place] (AMOXIL) 12-05 al capsule by [facility] 500 mg 00:00: 23:59 pharyngitis mouth 2 capsule 00 :00 times daily for 10 days. acetaminoph 2019- No Acute 1{tbl} Take 1 [place] en-codeine 312-05 lymphadenit tablet by [facility] (TYLENOL/CO 00:00: 00:00 is mouth DEINE #3) 00 :00 every 4 300-30 mg hours as per tablet needed for Pain. Vital Signs Vital Name Observation Time Observation Value Comments Source Systolic blood pressure 2020-01-18 12:16:00 120 mm[Hg] [facility] Diastolic blood pressure 2020-01-18 12:16:00 64 mm[Hg] [facility] Heart rate 2020-01-18 12:16:00 85 /min [facility] Body temperature 2020-01-18 12:16:00 36.89 [facility] Respiratory rate 2020-01-18 12:16:00 18 /min [facility] Oxygen saturation in 2020-01-18 12:16:00 97 /min [facility] Arterial blood by Pulse oximetry Body height 2019-12-05 14:47:[address] [facility] Body weight 2019-12-05 14:47:[address] [facility] BMI 2019-12-05 14:47:00 44.76 kg/m2 [facility] Procedures Procedure Date / Time Performed Performing Clinician Sour e URINALYSIS 2020-01-18 10:35:00 Myriam Stanton URINALYSIS 2020-01-18 10:35:00 Myriam Stanton [facility] CT ABDOMEN AND PELVIS 2020-01-18 09:14:41 Min [facility] CONTRAST POCT URINE DIPSTICK - 2020-01-18 08:53:00 Myriam Stanton [facility] CREATININE POC 2020-01-18 06:48:[address] [facility] BMP POC 2020-01-18 06:48:[address] [facility] CBC/DIFF 2020-01-18 06:44:00 Myriam Stanton [facility] h LIPASE 2020-01-18 06:44:00 Myriam Stanton [facility] LIVER PROFILE 2020-01-18 06:44:00 Myriam Stanton [facility] CBC 2020-01-18 06:44:00 Myriam Stanton [facility] D-DIMER 2020-01-18 06:44:[address] [facility] XRAY CHEST 1 VIEW 2020-01-18 06:28:00 Myriam Stanton [facility] POC GROUP A STREP SCREEN 2019-12-05 15:40:00 Lucero Lovell [facility] U/S ABDOMEN LIMITED 2019-12-04 20:18:00 Bre Hall [facility] URINALYSIS 2019-12-04 17:35:00 Bre Hall [facility] TEST 2019-12-04 17:35:00 Bre Hall [facility] URINALYSIS 2019-12-04 17:35:00 Bre Hall [facility] BMP POC 2019-12-04 16:51:00 Unknown, Provider Jesus [facility] CREATININE POC 2019-12-04 16:50:00 Unknown, [facility] CBC/DIFF 2019-12-04 16:41:00 RodBre louie [facility] LIVER PROFILE 2019-12-04 16:41:00 Bre Hall [facility] LIPASE 2019-12-04 16:41:00 Bre Hall [facility] HIV AG/AB COMBO ROUTINE 2019-12-04 16:41:00 Bre Hall [facility] SCREENING CBC 2019-12-04 16:41:00 Bre Hall [facility] Plan of Care Planned Activity Planned Date Details Comments Source Future Scheduled Test 2020-07-17 00:00:00 IMM Influenza [facility] Seasonal Jul to December (>/= 19 yrs) [code = IMM Influenza Seasonal Jul to December (>/= 19 yrs)] Future Scheduled Test 2015 00:00:00 Screening for [facility] malignant neoplasm of cervix (procedure) [code = 910332925] Encounters Start End Encounter Admission Attending Care Care Encounter Source Date/Time Date/Time Type Type Clinicians Facility Department ID 2018-01-02 2018-01-02 Outpatient [facility] [id number] [place] 00:00:00 00:00:00 Health 2017-12-21 2017-12-21 Emergency [facility] [id number] [place] 13:29:05 13:29:05 Health 2017-12-21 2017-12-21 Emergency [facility] [id number] [place] 11:36:16 11:36:16 Health Results Test Description Test Time Test Comments Results Result Comments Source Urinalysis 2020-01-18 11:25:00 Test Item Value Reference Range Interpretation Comme nts Color (test code = 88380768) Yellow Colorless, Straw, Yellow Clarity (test code = 64070154) Clear Clear Spec [place], Ur (test code = 42490426) >1.035 1.001-1.035 H pH, Ur (test code = 85474993) 7.0 5.0-8.0 Protein, Ur (test code = 85232572) Negative Negative mg/dL Glucose, Ur (test code = 11130266) Negative Negative mg/dL Ketone, Ur (test code = 09127812) 1+ Negative mg/dL A Bilirubin, Ur (test code = 06355491) Negative Negative mg/dL Nitrite, Ur (test code = 24017493) Negative Negative Leukocyte (test code = 06929648) Negative Negative mg/dL Blood, Ur (test code = 72621015) Negative Negative mg/dL Urobilinogen, Ur (test code = 21861060) <1.0 <1.0 EU/dL Lab Interpretation (test code = 93214-4) [facility]normal [facility] [id number] 11:16:54IMPRESSION: No acute inflammatory process in the abdomen/pelvis. A "PRELIMINARY" report was made available via [employer] at the time ofdictation by the resident [...] abdomen/pelvis.A "PRELIMINARY" report was made available via [employer] at the time ofdictation by the resident indicated below. If the report is described as"FINALIZED" it indicates the attending/staff radiologist below hasreviewed the images and agrees with the resident's interpretation.Resident: Dr.Vikramjeet Al.Dictated By: Tucker Lopez, 01/18/2020 11:01 AMI have reviewed the study and agree with the findings in this report.Signed By:Haider Zambrano MD, 01/18/2020 11:16 [facility] Urine - [id number] 08:53:00 Test Item Value Reference Range Interpretation Comments Control (test code = 7172) present (test code = 7173) negative Lab Interpretation (test code = Normal 64401-1) [id number] 07:50:00 Test Item Value Reference Range Interpretation Comments Lipase (test code = 47708214) 16 U/L 11-82 Lab Interpretation (test code = Normal 98798-1) [facility] [id number] 07:50:00 Test Item Value Reference Range Interpretation Comments Bilirubin, Total (test code = 0.7 mg/dL 0.2-1.2 H 2885-2) Alkaline Phosphatase (test code = 61 U/L 34-104 38892732) AST (test code = 45070454) 81 U/L 13-39 H Direct Bilirubin (test code = 0.1 mg/dL 0-0.2 1968-7) ALT (test code = 51159277) 136 U/L 7-52 H Albumin (test code = 96584-0) 5.0 g/dL 3.7-5.3 Lab Interpretation (test code = Abnormal 90924-0) [facility] [id number] 07:47:00 Test Item Value Reference Range Interpretation Comments D-Dimer (test code = 0.22 0.22- 0.48 ug/mL Beatrice ues of 89817402) FEU quantitative D- Dimer less than 0.40 ug/mL FEU have been reported to be associated with a low probability of deep vein thrombosis/pulm onary embolism. This test alone should no t be used to rule ou t DVT/PE. Lab Interpretation (test Normal code = 31544-1) [facility]/[id number] 07:27:00 Test Item Value Reference Range Interpretation [...] g/dL 32-36 L RDW (test code = 01885-8) 47.6 fL 36.4-46.3 H Platelet (test code = 777-3) 252 K/uL 150-400 Mean Platelet Volume (test code = 13.1 fL 9.4-12.4 H 90668-7) Percent NRBC (test code = 55794467) 0.0 % Neutrophil (test code = 770-8) 74.8 % 34-70 H Lymphs (test code = 736-9) 18.9 % 20-50 L Monocytes (test code = 5905-5) 5.1 % 5-12 Eos (test code = 713-8) 0.1 % 0.7-5 L Basos (test code = 706-2) 0.5 % 0.1-1.2 Immature Granulocytes (test code = 0.6 % 0-0.5 H 38932145) Neutrophils (Absolute) (test code = 9.01 K/uL 1.56-6.13 H 94990110) Lymphs (Absolute) (test code = 2.27 K/uL 1.18-3.74 58545539) Monocytes(Absolute) (test code = 0.62 K/uL 0.24-0.36 H 95173412) Eos (Absolute) (test code = 0.01 K/uL 0.04-0.36 L 81863472) Baso (Absolute) (test code = 0.06 K/uL 0.01-0.08 19266846) Immature Grans (Abs) (test code = 0.07 K/uL 0-0.03 H 57100698) Absolute NRBC (test code = 0.00 K/uL 95754537) Lab Interpretation (test code = Abnormal 46776-0) [facility] BMP POC docked [id number] 07:22:00 Test Item Value Reference Range Interpretation Comments Sodium POC (test code = 19217846) 139 mmol/L 136-145 Potassium POC (test code = 4.4 mmol/L 3.5-5.1 51578153) Chloride POC (test code = 101 mmol/L 98-107 01332744) TCO2 POC (test code = 72075347) 31 mmol/L 21-32 --- Urea Nitrogen POC (test code = 5 mg/dL 7-18 L 33049148) Glucose POC (test code = 27413040) 141 mg/dL 74-106 H Hemoglobin POC (test code = 15.3 g/dL 12-16 55307953) Hematocrit POC (test code = 45.0 % 37-47 81913459) Lab Interpretation (test code = Abnormal 46965-7) [facility] CHEST 1 [id number] 06:58:12IMPRESSION: No acute cardiopulmonary process. If the report is "FINALIZED" it indicates that the att ending/staffradiologist has reviewed the images and agrees with the resident'sinterpretation. Dictated By: Sidney Tirado DO, 01/18/2020 6:57 AM I have reviewed the study and agree with the findings in this report. Signed By: Julia Cooper, 01/18/2020 6:58 AM Interface, Rad/Mammog In - [...] the findings in this report.Signed By: Julia Cooper, 01/18/2020 6:58 [facility] CREATININE POC docked [id number] 06:51:00 Test Item Value Reference Range Interpretation Comments Creatinine POC (test code = 0.7 mg/dL 0.6-1.3 017 26732530) GFR, Estimated (test code = >90 >=90 mL/min/1.73 m2 42119412) Lab Interpretation (test code = Normal 20733-1) [facility] GROUP A STREP [id number] 15:47:00 Test Item Value Reference Range Interpretation Comments Group A Strep POC (test code = 8167) Positive Neg - Neg GAS (Contr) (test code = 8166) Pass Pass - Pass [facility] ABDOMEN [id number] 22:12:44IMPRESSION:Hepatic steatosis. Otherwise, normal sonogram. If the [...] report.Signed By: Cesar Bhatia MD,12/04/2019 10:12 PMNorth[facility] NetworkHIV: unless the patient is HIV positive 2019-12-04 18:02:00 Test Item Value Reference Range Interpretation Comments HIV Ag/Ab Combo (test code = Negative Negative 54793-4) Lab Interpretation (test code = Normal 40951-5) [facility] NetworkPregnancy Test (Lab UPREGB)2019-12-04 17:46:00 Test Item Value Reference Range Interpretation Comments (test code = 97656920) Negative Negative Lab Interpretation (test code = Normal 01106-3) [facility]
--- OUTSIDE RECORDS SUMMARY | 2020-10-08 18:51 | XMS REPORT | Clinical Summary ---
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; BMI 40.0-44.9, adult; Encounter to [facility] and imaging results; Elevated blood pressure reading without diagnosis of hypertension 12/05/2019 Nurse Triage Amber Jarquin RN 12/04/2019 - Emergency Emergency Medicine Generaliz ed abdominal 12/05/2019 pain (Primary D x) after 10/08/2019 Immunizations Name Administration Dates Next Due Influenza, Seasonal, Injectable 12/05/2019 (Deferred: Contra indication) Social History Tobacco Use Types Packs/Day Years Used Date Never Smoker Smokeless Tobacco: Never Used Tobacco Cessation: Counseling Given: No Alcohol Use Drinks/Week oz/Week Comments No Sex Assigned at Date Recorded Not on file Last Filed Vital Signs Vital Sign Reading Time Taken Comments Blood Pressure 120/64 01/18/2020 12:16 PM CDT Pulse 85 01/18/2020 12:16 PM CDT Temperature 36.9 C (98.4 F) 01/18/2020 12:16 PM CDT Respiratory Rate 18 01/18/2020 12:16 PM CDT Oxygen Saturation 97% 01/18/2020 12:16 PM CDT Inhaled Oxygen Concentration - - Weight 122 kg (269 lb) 12/05/2019 2:47 PM INCOME AUDITOR Height 165.1 cm (5' 5") 12/05/2019 2:47 PM INCOME AUDITOR Body Mass Index 44.76 12/05/2019 2:47 PM INCOME AUDITOR Plan of Treatment Health Maintenance Due Date Last Done Comments Pap Cervical Cancer Scrn 2015 IMM Influenza Seasonal Jul to December [...] throat Result s for this SCREEN PM INCOME AUDITOR procedure are i n the results section. U/S ABDOMEN LIMITED STAT 12/04/2019 8:18 Generalized Resu lts for this PM INCOME AUDITOR abdominal pain procedure are in the results section. URINALYSIS STAT 12/04/2019 5:35 Results for this PM INCOME AUDITOR procedure are i n the results section. TEST STAT 12/04/2019 5:35 Results f or this PM INCOME AUDITOR procedure are i n the results section. URINALYSIS STAT 12/04/2019 5:35 Results for this PM INCOME AUDITOR procedure are i n the results section. BMP POC Routine 12/04/2019 4:51 Results for this PM INCOME AUDITOR procedure are i n the results section. CREATININE POC Routine 12/04/2019 4:50 Results f or this PM INCOME AUDITOR procedure are i n the results section. CBC STAT 12/04/2019 4:41 Results for this PM INCOME AUDITOR procedure are i n the results section. HIV AG/AB COMBO STAT 12/04/2019 4:41 Results for this ROUTINE SCREENING PM INCOME AUDITOR procedure are in the results section. LIPASE STAT 12/04/2019 4:41 Results for this PM INCOME AUDITOR procedure are i n the results section. LIVER PROFILE STAT 12/04/2019 4:41 Results fo r this PM INCOME AUDITOR procedure are i n the results section. CBC/DIFF STAT 12/04/2019 4:41 Results for this PM INCOME AUDITOR procedure are i n the results section. after 10/08/2019 Results Urinalysis (01/18/2020 10:35 AM CDT)Only the most recent of2 resultswithin the time period is included. Color Yellow Colorless, Straw, [facility] Yellow Clarity Clear Clear [facility] Spec [place], Ur >1.035 (H) 1.001 - 1.035 [facility] [...] [facility] Specimen Urine Performing Organization Address City/State/ZIP Code Phon e Number [facility] [address] [place] [address] CT ABDOMEN AND PELVIS CONTRAST (01/18/2020 9:14 AM CDT) Specimen Impressions Performed At IMPRESSION: SMS No acute inflammatory process in the abd omen/pelvis. A "PRELIMINARY" report was made availabl e via [employer] at the time of dictation by the [...] Water COMPLICATIONS: None RADIATION DOSE: Total DLP: 1991 mGy*cm Estimated effective dose: (DLP x 0. [...] "PRELIMINARY" report was made availabl e via [employer] at the time of dictation by the resident indicated leathao w. If the report is described as "FINALIZED" it indicates the attending/s taff radiologist below has reviewed the images and agrees with the resident's interpretation. Resident: Dr.Vikramjeet Al. Dictated By: Tucker Al MD, 01/18/20 11:01 AM I have reviewed the study and agree with the findings in this report. Signed By: Haider Zambrano MD, 01/18/2020 11 :16 AM Performing Organization Address City/State/ZIP Code Phon e Number SMS POCT Urine - (01/18/2020 8:53 AM CDT) Pathologist Sig nature Control present negative POCT CREATININE POC docked device (01/18/2020 6:48 AM CDT)Only the most recent of2 resultswithin the time period is included. Creatinine POC 0.7Comment: 017 0.6 - 1.3 mg/dL [facility] GFR, Estimated >90 >=90 [facility] mL/min/1.73 m2 Specimen Blood, venous Performing Organization Address City/State/ZIP Code Phon e Number [facility] [address] [place] [address] POCT BMP POC docked device (01/18/2020 6:48 AM CDT)Only the most recent of2 resultswithin the time period is included. Sodium POC 139 136 - 145 [facility] mmol/L Potassium POC 4.4 3.5 - 5.1 [facility] mmol/L Chloride POC 101 98 [...] LABORATORY Specimen Blood, venous Performing Organization Address City/State/ZIP Code Phon e Number [facility] [address] [place] [address] CBC/Diff (01/18/2020 6:44 AM CDT)Only the most [...] K/uL Monocytes(Absolute) 0.62 (H) 0.24 - 0.36 [facility] K/uL Eos (Absolute) 0.01 (L) 0.04 - 0.36 [facility] K/uL Baso (Absolute) 0.06 0.01 - 0.08 [facility] K/uL Immature Grans (Abs) 0.07 (H) 0.00 - 0.03 [facility] K/uL Absolute NRBC 0.00 K/uL [facility] Specimen Blood Performing Organization Address [facility] Phon e Number [facility] [address] [place] [address] Liver Profile (01/18/2020 6:44 AM CDT)Only the [...] [facility] Specimen Blood Performing Organization Address [facility] e Number [facility] [address] [place] [address] Lipase (01/18/2020 6:44 AM CDT)Only the most recent of2 resultswithin the time period is included. Pathologist Sig nature Lipase 16 11 - 82 U/L [facility] Specimen Blood Performing Organization Address [facility] e Number [facility] [address] [place] [address] D-Dimer (01/18/2020 6:44 AM CDT) D-Dimer 0.22Comment: Values of 0.22 - 0.48 [facility] Y quantitative D-Dimer ug/mL FEU less than 0.40 ug/mL FEU have been reported to be associated with a low probability of deep vein thrombosis/pulmonary embolism. This test alone should not be used to rule out DVT/PE. Specimen Blood Performing Organization Address City/State/ZIP Code [facility] [address] [place] [address] XRAY CHEST 1 VIEW (01/18/2020 6:28 AM CDT) Specimen Impressions Performed At IMPRESSION: [facility] No acute cardiopulmonary process. If the report [...] 01/18/2020 6:5 8 AM Performing Organization Address City/State/ZIP Code Phon e Number SMS POC GROUP A STREP SCREEN (12/05/2019 3:40 PM INCOME AUDITOR) Pathologist Sig nature Group A Strep POC Positive Neg - Neg GAS (Contr) Pass Pass - Pass Specimen Throat U/S ABDOMEN LIMITED (12/04/2019 8:18 PM INCOME AUDITOR) Specimen Impressions Performed At IMPRESSION: [facility] Hepatic [...] Performed At EXAM: Right Upper Quadrant Ultrasound [facility] INDICATION: abd pain, elevated LFTs COMPARISON: None. [...] Rad/Mammog In - 12/04/2019 10 :17 PM INCOME AUDITOR EXAM: Right Upper Quadrant Ultrasound INDICATION: abd [...] 12/04/2019 1 0:12 PM Performing Organization Address [facility] Phon e Number SMS Test (Lab UPREGB) (12/04/2019 5:35 PM INCOME AUDITOR) Pathologist Sig nature Negative Negative [facility] Specimen Urine Performing Organization Address [facility] Phon e Number [facility] [address] [place] [address] HIV: unless the patient is HIV positive (12/04/2019 4:41 PM INCOME AUDITOR) Pathologist Sig nature HIV Ag/Ab Combo Negative Negative [facility] Specimen Blood Performing Organization Address [facility]/ZIP Code Phon e Number [facility] [address] [place] [address] after 10/08/2019
[2020-10-08] MEDS ORDERED: NA CHLORIDE 0.9% 1,000 ML ONE (20:23)
[2020-10-08] MEDS ORDERED: MAGNES/ALUMIN/SIMET 30ML UCUP ONE (20:23)
[2020-10-08] MEDS ORDERED: ONDANSETRON 4 MG/2 ML VIAL ONE (20:24)
[2020-10-08] MEDS ORDERED: LIDOCAINE VISCOUS 2% SOLN 15 ML UDC ONE (20:24)
[2020-10-08] MEDS ORDERED: FAMOTIDINE 20 MG/2 ML VIAL IV ONE (20:24)
[2020-10-08 20:47] LABS: Absolute Lymphocytes (CBC) 2.1 K/uL (0.7-4.9); Basophils % 0.2 % (0-1.3); Hematocrit 39.7 % (36.0-45.0); Lymphocytes % 16.6 % (15.3-44.8); MPV 10.8 fL (7.6-11.3); RBC Red Blood Cell Count 4.94 M/uL (3.86-4.86)
[2020-10-08 21:07] LABS: Protime INR 1.04
[2020-10-08 21:08] LABS: ALT/SGPT 36 U/L (12-78); AST/SGOT 21 U/L (15-37); Albumin 4.2 g/dL (3.4-5.0); Alkaline Phosphatase 69 U/L (45-117); BUN Blood Urea Nitrogen 7 mg/dL (7-18); Bicarbonate 32 mmol/L (21-32); Bilirubin Direct 0.2 mg/dL (0-0.2); Bilirubin Total 0.5 mg/dL (0.2-1.0); CKMB Creatine Kinase MB 1.3 ng/mL (0.3-3.6); Creatine Phosphokinase 182 U/L (26-192); Glucose Level 111 mg/dL (74-106); Lipase 267 U/L (73-393); Magnesium 2.6 mg/dL (1.8-2.4); NT PRO-BNP 73 pg/mL (<125); Potassium 3.1 mmol/L (3.5-5.1); Protein, Total 8.6 g/dL (6.4-8.2); Sodium Level 140 mmol/L (136-145); Troponin (Emerg Dept Use Only) < 0.02 ng/mL (0.0-0.045)
--- NOTE | 2020-10-08 21:36 | RAD REPORT ---
EXAM DESCRIPTION: Ricky Single View10/08/2020 8:53 pm CLINICAL HISTORY: Congestion COMPARISON: none FINDINGS: The lungs appear clear of acute infiltrate. The heart is normal size IMPRESSION: No acute abnormalities displayed
--- NOTE | 2020-10-08 22:24 | ER ---
Nurse's Notes [facility] Name: Juany Payne Age: 25 yrs Sex: Female : 1995 Arrival Date: 10/08/2020 Time: 18:49 Bed 18 Private MD: Diagnosis: Hematemesis;Upper abdominal pain, unspecified Presentation: 10/08 19:37 Chief complaint: Patient states: Cough since Tuesday. Fatigue, N/V, body aches since sv Tuesday. Noticed blood in sputum and vomitus she states. Coronavirus screen: Client denies travel out of the [place] in the last 14 days. congestion, cough unrelated to allergies, fatigue, fever, headache, muscle pain, nausea, shaking with chills, sore throat, vomiting. Client presents with at least one sign or symptom that may indicate coronavirus-19. Standard/surgical mask placed on the client. Ebola Screen: Patient denies travel to an Ebola-affected area in the 21 days before illness onset. Initial Sepsis Screen: Does the patient meet any 2 criteria? No. Patient's initial sepsis screen is negative. Does the patient have a suspected source of infection? Yes: Productive cough/pneumonia. Risk Assessment: Do you want to hurt yourself or someone else? Patient reports no desire to harm self or others. Onset of symptoms was October 03, 2020. 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 - Social history:: Smoking status: Patient denies any tobacco usage or history of. Patient/guardian denies using alcohol, street drugs, The patient lives with family. - Family history:: not pertinent. Screenin:00 Abuse screen: Denies threats or abuse. Nutritional screening: No deficits noted. ll2 Tuberculosis screening: No symptoms or risk factors identified. Fall Risk None identified. Assessment: 20:00 General: Appears in no apparent distress. Behavior is calm, cooperative, appropriate ll2 for age. Pain: Complains of pain in xyphoid area and mid-sternal area. Neuro: Level of Consciousness is awake, alert, obeys commands, Oriented to person, place, time, situation. Cardiovascular: Patient's skin is warm and dry. Respiratory: Airway is patent Respiratory effort is even, unlabored, Respiratory pattern is regular, symmetrical. GI: Reports nausea. : No signs and/or symptoms were reported regarding the genitourinary system. EENT: No signs and/or symptoms were reported regarding the EENT system. Derm: Skin is intact, is healthy with good turgor, Skin is dry, Skin is pink, warm \T\ dry. Musculoskeletal: Circulation, motion, and sensation intact. Range of motion: intact in all extremities. 21:00 Reassessment: Patient and/or family updated on plan of care and expected duration. Pain ll2 level reassessed. Patient is alert, oriented x 3, equal unlabored respirations, skin warm/dry/pink. pt resting in bed. 22:35 Reassessment: Patient and/or family updated on plan of care and expected duration. Pain ll2 level reassessed. Patient is alert, oriented x 3, equal unlabored respirations, skin warm/dry/pink. Vital Signs: 19:37 BP 158 / 84; Pulse 89; Resp 18; Temp 99.3; Pulse Ox 99% on R/A; Weight 90.26 kg; Height sv 5 ft. 5 in. (165.10 cm); Pain 7/10; 20:18 BP 151 / 85; Pulse 63; Resp 18; Temp 99; Pulse Ox 100% on R/A; ll2 21:00 BP 115 / 89; Pulse 62; Resp 18; Pulse Ox 100% on R/A; ll2 22:37 BP 160 / 92; Pulse 70; Resp 16; Pulse Ox 100% on R/A; ll2 19:37 Body Mass Index 33.11 (90.26 kg, 165.10 cm) sv ED Course: 18:49 Patient arrived in ED. rg4 19:37 Arm band placed on Patient placed in an exam room, on a stretcher. sv 19:39 Triage completed. sv 19:45 Elana Reaves MD is Attending Physician. ma2 19:48 María Elena Hansen RN is Primary Nurse. ll2 20:20 Initial lab(s) drawn, by me, sent to lab. Inserted saline lock: 20 gauge in right jp3 antecubital area, using aseptic technique. Blood collected. 20:20 Patient maintains SpO2 saturation greater than 95% on room air. jp3 20:25 Flu and/or RSV swab sent to lab. Strep swab sent to lab. jp3 20:30 COVID swab sent to lab. jp3 20:40 X-ray(s) taken. jp3 20:54 XRAY CXR (1 view) In Process Unspecified. EDMS 21:37 CT Chest For PE Angio: chest pain, hemoptysis and hematemesis In Process Unspecified. EDMS 22:23 Christian Morin MD is Referral Physician. ma2 22:23 Richard Mcgregor MD is Referral Physician. ma2 22:42 Patient has correct armband on for positive identification. Bed in low position. Call ll2 light in reach. Side rails up X 1. Pulse ox on. NIBP on. 22:42 No provider procedures requiring assistance completed. IV discontinued, intact, ll2 bleeding controlled, No redness/swelling at site. Pressure dressing applied. Administered Medications: 20:20 Drug: GI Cocktail without - (Maalox Suspension 30 ml, Lidocaine Liquid 2 % 15 ll2 ml) Route: PO; 21:00 Follow up: Response: No adverse reaction ll2 20:55 Drug: Zofran (Ondansetron) 4 mg Route: IVP; Site: right antecubital; ll2 21:00 Follow up: Response: No adverse reaction ll2 20:55 Drug: Pepcid 20 mg Route: IVP; Site: right antecubital; ll2 21:00 Follow up: Response: No adverse reaction ll2 20:56 Drug: NS 0.9% 1000 ml Route: IV; Rate: 2 bolus; Site: right antecubital; ll2 22:00 Follow up: Response: No adverse reaction; IV Status: Completed infusion; IV Intake: ll2 1000ml 22:30 Drug: [place] 5 mg-325 mg 1 tabs Route: PO; ll2 22:37 Follow up: Response: Medication administered at discharge. ll2 Intake: 22:00 IV: 1000ml; Total: 1000ml. ll2 Outcome: 22:23 Discharge ordered by . ma2 22:42 Discharged to home ambulatory. ll2 22:42 Condition: stable 22:42 Discharge instructions given to patient, Instructed on discharge instructions, follow up and referral plans. medication usage, Demonstrated understanding of instructions, follow-up care, medications, Prescriptions given X 1. 22:43 Patient left the ED. ll2 Signatures: Dispatcher [employer] Susan Martinez, RN RN Little Velazquez rg4 Elana Reaves MD MD ma2 Ike Brannon jp3 María Elena Hansen RN RN ll2
--- NOTE | 2020-10-08 22:25 | EDPHYS ---
Physician Documentation [facility] Name: Juany Payne Age: 25 yrs Sex: Female : 1995 Arrival Date: 10/08/2020 Time: 18:49 Bed 18 Private MD: ED Physician Elana Reaves HPI: 10/08 22:20 This 25 yrs old Female presents to ER via Ambulatory with complaints of ma2 Coughing Blood, Fever. 22:20 This 25 yrs old Female presents to ER via Ambulatory with complaints of ma2 vomiting. 22:20 Onset: The symptoms/episode began/occurred gradually, 6 week(s) ago. Associated signs ma2 and symptoms: Pertinent negatives: altered mental status, backache, cough, pulling at ears, nausea, night sweats, sinus drainage. Severity of symptoms: At their worst the symptoms were very mild in the emergency department the symptoms have resolved. The patient has experienced similar episodes in the past. has vomiting and epigastric burning for 2 month with occasional coffee ground vomtiing, last episode was yesterday. she has had this before, smokes MJ. 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 - Social history:: Smoking status: Patient denies any tobacco usage or history of. Patient/guardian denies using alcohol, street drugs, The patient lives with family. - Family history:: not pertinent. ROS: 22:20 Constitutional: Negative for fever, chills, and weight loss. ma2 22:20 All other systems are negative. Exam: 22:20 Constitutional: This is a well developed, well nourished patient who is awake, alert, ma2 and in no acute distress. Head/Face: Normocephalic, atraumatic. Eyes: Pupils equal round and reactive to light, extra-ocular motions intact. Lids and lashes normal. Conjunctiva and sclera are non-icteric and not injected. Cornea within normal limits. Periorbital areas with no swelling, redness, or edema. ENT: Nares patent. No nasal discharge, no septal abnormalities noted. Tympanic membranes are normal and external auditory canals are clear. Oropharynx with no redness, swelling, or masses, exudates, or evidence of obstruction, uvula midline. Mucous membranes moist. Neck: Trachea midline, no thyromegaly or masses palpated, and no cervical lymphadenopathy. Supple, full range of motion without nuchal rigidity, or vertebral point tenderness. No Meningismus. Chest/axilla: Normal chest wall appearance and motion. Nontender with no deformity. No lesions are appreciated. Cardiovascular: Regular rate and rhythm with a normal S1 and S2. No gallops, murmurs, or rubs. Normal PMI, no JVD. No pulse deficits. Respiratory: Lungs have equal breath sounds bilaterally, clear to auscultation and percussion. No rales, rhonchi or wheezes noted. No increased work of breathing, no retractions or nasal flaring. Abdomen/GI: Soft, non-tender, with normal bowel sounds. No distension or tympany. No guarding or rebound. No evidence of tenderness throughout. Back: No spinal tenderness. No costovertebral tenderness. Full range of motion. Skin: Warm, dry with normal turgor. Normal color with no rashes, no lesions, and no evidence of cellulitis. MS/ Extremity: Pulses equal, no cyanosis. Neurovascular intact. Full, normal range of motion. Neuro: Awake and alert, GCS 15, oriented to person, place, time, and situation. Cranial nerves II-XII grossly intact. Motor strength 5/5 in all extremities. Sensory grossly intact. Cerebellar exam normal. Normal gait. Vital Signs: 19:37 BP 158 / 84; Pulse 89; Resp 18; Temp 99.3; Pulse Ox 99% on R/A; Weight 90.26 kg; Height sv 5 ft. 5 in. (165.10 cm); Pain 7/10; 20:18 BP 151 / 85; Pulse 63; Resp 18; Temp 99; Pulse Ox 100% on R/A; ll2 21:00 BP 115 / 89; Pulse 62; Resp 18; Pulse Ox 100% on R/A; ll2 22:37 BP 160 / 92; Pulse 70; Resp 16; Pulse Ox 100% on R/A; ll2 19:37 Body Mass Index 33.11 (90.26 kg, 165.10 cm) sv MDM: 19:45 Patient medically screened. ma2 22:20 Differential diagnosis: viral Infection, bronchitis, gastroenteritis. Data reviewed: il2 vital signs, nurses notes. Counseling: I had a detailed discussion with the patient and/or guardian regarding: the historical points, exam findings, and any diagnostic results supporting the discharge/admit diagnosis, the presence of at least one elevated blood pressure reading (>120/80) during this emergency department visit, the need for outpatient follow up. Response to treatment: the patient's symptoms have markedly improved after treatment. 10/08 19:48 Order name: BMP ma2 10/08 19:48 Order name: CBC with Diff; Complete Time: 21:59 ma2 10/08 19:48 Order name: Ckmb; Complete Time: 21:59 ma2 10/08 19:48 Order name: CPK; Complete Time: 21:59 ma2 10/08 19:48 Order name: Hepatic Function; Complete Time: 21:59 ma2 10/08 19:48 Order name: Lipase; Complete Time: 21:59 ma2 10/08 19:48 Order name: Magnesium; Complete Time: 21:59 ma2 10/08 19:48 Order name: NT PRO-BNP; Complete Time: 21:59 ma2 10/08 19:48 Order name: PT-INR; Complete Time: 21:59 ma2 10/08 19:48 Order name: Ptt, Activated; Complete Time: 21:59 ma2 10/08 19:48 Order name: Troponin (emerg Dept Use Only); Complete Time: 21:59 ma2 10/08 19:48 Order name: Flu; Complete Time: 21:59 ma2 10/08 19:48 Order name: Strep; Complete Time: 21:59 ma2 10/08 19:48 Order name: XRAY CXR (1 view); Complete Time: 21:59 ma2 10/08 19:48 Order name: Cardiac monitoring; Complete Time: 20:40 ma2 10/08 19:48 Order name: IV Saline Lock; Complete Time: 20:40 ma2 10/08 19:48 Order name: Labs collected and sent; Complete Time: 20:40 ma2 10/08 19:48 Order name: O2 Per Protocol; Complete Time: 20:40 ma2 10/08 19:49 Order name: Basic Metabolic Panel; Complete Time: 21:59 EDMS 10/08 20:03 Order name: CT Chest For PE Angio: chest pain, hemoptysis and hematemesis [facility] 10/08 21:17 Order name: Throat Culture [facility] 10/08 22:34 Order name: SARS-COV-2 RT PCR; Complete Time: 22:36 [facility] 10/08 19:48 Order name: O2 Sat Monitoring; Complete Time: 20:40 [facility] Administered Medications: 20:20 Drug: GI Cocktail without - (Maalox Suspension 30 ml, Lidocaine Liquid 2 % 15 ll2 ml) Route: PO; 21:00 Follow up: Response: No adverse reaction ll2 20:55 Drug: Zofran (Ondansetron) 4 mg Route: IVP; Site: right antecubital; ll2 21:00 Follow up: Response: No adverse reaction ll2 20:55 Drug: Pepcid 20 mg Route: IVP; Site: right antecubital; ll2 21:00 Follow up: Response: No adverse reaction ll2 20:56 Drug: NS 0.9% 1000 ml Route: IV; Rate: 2 bolus; Site: right antecubital; ll2 22:00 Follow up: Response: No adverse reaction; IV Status: Completed infusion; IV Intake: ll2 1000ml 22:30 Drug: [place] 5 mg-325 mg 1 tabs Route: PO; ll2 22:37 Follow up: Response: Medication administered at discharge. ll2 Disposition: 10/08/20 22:23 Discharged to Home. Impression: Hematemesis, Upper abdominal pain, unspecified. - Condition is Stable. - Discharge Instructions: Abdominal Pain, Adult, Hematemesis, Cannabis Use Disorder, Gastritis, Adult, [id number]. - Prescriptions for omeprazole 40 mg Oral capsule,delayed release(DR/EC) - take 1 capsule by ORAL route once daily before a meal; 30 capsule. - Medication Reconciliation Form, Thank You Letter, Antibiotic Education, Prescription Opioid Use form. - Follow up: Christian Morin; When: Tomorrow; Reason: Continuance of care. Follow up: Richard Mcgregor; When: Tomorrow; Reason: Continuance of care. Signatures: Dispatcher [employer] [facility] Susan Mendoza RN RN Tangela Alarcon, TELEGRAPH SERVICE CLERK-C TELEGRAPH SERVICE CLERK-CsnElana De Leon MD MD ma2 María Elena Hansen, RN RN ll2 Corrections: (The following items were deleted from the chart) 21:22 19:49 CORONAVIRUS+MR.LAB.BRZ ordered. EDMS EDMS 22:30 19:48 EKG - Nurse/Tech ordered. ricarda ll2 22:43 22:23 10/08/2020 22:23 Discharged to Home. Impression: Hematemesis; Upper abdominal ll2 pain, unspecified. Condition is Stable. Discharge Instructions: Hematemesis, Cannabis Use Disorder, Gastritis, Adult, [id number]. Prescriptions for omeprazole 40 mg Oral capsule,delayed release(DR/EC) - take 1 capsule by ORAL route once daily before a meal; 30 capsule. and Forms are Medication Reconciliation Form, Thank You Letter, Antibiotic Education, Prescription Opioid Use. Follow up: Christian Morin; When: Tomorrow; Reason: Continuance of care. Follow up: Richard Mcgregor; When: Tomorrow; Reason: Continuance of care. ma2
[2020-10-08] MEDS ORDERED: HYDROCODONE/APAP 5/325 MG TAB ONE (22:39)
[2020-10-08 22:50] VITALS: TEMP 99; O2SAT 100
[2020-10-08 22:52] VITALS: BP 160/92
--- NOTE | 2020-10-09 13:24 | RAD REPORT ---
EXAM DESCRIPTION: CT - Chest For Pe Angio - 10/09/2020 6:42 am CLINICAL HISTORY: The patient is 25 years old and is Female; PAIN TECHNIQUE: Axial computed tomographic angiography images of the chest with intravenous contrast. T his CT exam was performed using one or more of the following dose reduction techniques: automated e xposure control, adjustment of the mA and/or kV according to patient size, and/or use of iterative re construction technique. MIP reconstructed images were created and reviewed. Oblique reformatted images were created and reviewed. DLP: 521 mGy*cm COMPARISON: None. FINDINGS: PULMONARY ARTERIES: Unremarkable. No pulmonary embolism. AORTA: No acute findings. No thoracic aortic aneurysm. LUNGS: Mild interlobular septal thickening and bibasilar atelectasis. No focal consolidation. PLEURAL SPACE: Unremarkable. No significant effusion. No pneumothorax. HEART: Unremarkable. No cardiomegaly. No significant pericardial effusion. No evidence of RV dysfunction. BONES/JOINTS: No acute fracture. No dislocation. SOFT TISSUES: Unremarkable. LYMPH NODES: Unremarkable. No enlarged lymph nodes. IMPRESSION: 1. No pulmonary embolism. No acute intrathoracic abnormality. 2. Mild interstitial edema and/or atelectasis. Electronically signed by: Suhas Zepeda DO 10/08/2020 9:52 PM WEIGHT CALLER Due to temporary technical issues with the PACS/Fluency reporting system, reports are being signed by the in house radiologists without review as a courtesy to insure prompt reporting. The interpreting radiologist is fully responsible for the content of the report.
== END 2020-10-08 22:43 | disposition home or self-care (01) ==
LOC: ER 18:48
DX: R10.13 Epigastric pain (principal); Z20.828 Contact with and (suspected) exposure to other viral communicable diseases
CPT/HCPCS: 36415; 71045; 71275; 80048; 80076; 82550; 82553; 83690; 83735; 83880; 84484; 85025; 85610; 85730; 87070; 87081; 87804; 96361; 96374; 96375; 99284; J2405; J7030; Q9967; U0003

== ENCOUNTER 2021-08-23 17:51 | Emergency (ER) | payer SELFPAY ==
[2021-08-23] MEDS ORDERED: ACETAMINOPHEN 325 MG TABLET ONE (19:43)
--- NOTE | 2021-08-23 20:20 | RAD REPORT ---
EXAM DESCRIPTION: Ricky Single View08/23/2021 7:52 pm CLINICAL HISTORY: Cough COMPARISON: 2019 FINDINGS: Medial right base is hazy. Left lung appears clear of Acute infiltrate. The heart is normal size IMPRESSION: Medial right base is hazy suspicious for a mild pneumonia
[2021-08-23 20:32] LABS: BUN Blood Urea Nitrogen 8 mg/dL (7-18); Bicarbonate 27 mmol/L (21-32); Glucose Level 109 mg/dL (74-106); Potassium 3.7 mmol/L (3.5-5.1); Sodium Level 136 mmol/L (136-145)
[2021-08-23 20:56] LABS: SARS-COV-2 RT PCR NEGATIVE (NEGATIVE)
[2021-08-23 20:59] LABS: Urine Blood 1+ (Negative); Urine Glucose Negative (Negative); Urine Protein Negative (Negative); Urine Specific Gravity 1.025 (1.005-1.030)
[2021-08-23 21:03] LABS: Urine Specific Gravity/Preg 1.025 (1.005-1.030)
[2021-08-23] MEDS ORDERED: CEFTRIAXONE 1000 MG/VIAL ONE (21:15)
--- NOTE | 2021-08-23 21:32 | EDPHYS ---
Physician Documentation [facility] Name: Juany Payne Age: 26 yrs Sex: Female : 1995 Arrival Date: 08/23/2021 Time: 17:53 Bed 11 Private MD: ED Physician Andres Garay HPI: 08/23 21:30 This 26 yrs old Female presents to ER via Ambulatory with complaints of Cough. jmm 21:30 Onset: The symptoms/episode began/occurred gradually, 1 week(s) ago. Modifying factors: jmm The symptoms are alleviated by nothing, the symptoms are aggravated by nothing. Associated signs and symptoms: Pertinent positives: fever, sore throat. It is unknown whether or not the patient has had similar symptoms in the past. 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 - Social history:: Smoking status: Patient denies any tobacco usage or history of. ROS: 21:30 Constitutional: Positive for body aches, chills, fever. jmm 21:30 Respiratory: Positive for cough, shortness of breath. 21:30 All other systems are negative. Exam: 21:30 Constitutional: This is a well developed, well nourished patient who is awake, alert, jmm and in no acute distress. Head/Face: atraumatic. Eyes: EOMI, no conjunctival erythema appreciated ENT: Moist Mucus Membranes Neck: Trachea midline, Supple Chest/axilla: Normal chest wall appearance and motion. Cardiovascular: Regular rate and rhythm. No edema appreciated Respiratory: Normal respirations, no respiratory distress appreciated Abdomen/GI: Non distended, soft Back: Normal ROM Skin: General appearance color normal MS/ Extremity: Moves all extremities, no obvious deformities appreciated, no edema noted to the lower extremities Neuro: Awake and alert, normal gait Psych: Behavior is normal, Mood is normal, Patient is cooperative and pleasant Vital Signs: 18:12 BP 117 / 82; Pulse 116; Resp 19; Temp 101.4(O); Pulse Ox 100% on R/A; Weight 92.99 kg tw2 (R); Height 5 ft. 5 in. (165.10 cm) (R); Pain 10/10; 20:02 BP 121 / 65; Pulse 108; Resp 18; Pulse Ox 99% ; vg1 21:03 BP 122 / 66; Pulse 92; Resp 17; Temp 99.9; Pulse Ox 100% ; vg1 18:12 Body Mass Index 34.11 (92.99 kg, 165.10 cm) tw2 18:12 but when i cough it is a 10 tw2 MDM: 19:40 Patient medically screened. [facility] 21:31 Data reviewed: vital signs, nurses notes. Counseling: I had a detailed discussion with satya the patient and/or guardian regarding: the historical points, exam findings, and any diagnostic results supporting the discharge/admit diagnosis, lab results, radiology results, the need for outpatient follow up, to return to the emergency department if symptoms worsen or persist or if there are any questions or concerns that arise at home. ED course: Patient is alert nontoxic in appearance in the ED. No signs of respiratory distress. Will be a prolonged course of oral antibiotics. Patient is otherwise given strict return precautions. Patient understood agrees plan of care.. 08/23 19:36 Order name: Flu [facility] 08/23 19:36 Order name: Strep; Complete Time: 20:54 [facility] 08/23 19:38 Order name: D-Dimer; Complete Time: 20:47 [facility] 08/23 19:36 Order name: Chest Single View XRAY; Complete Time: 20:22 [facility] 08/23 19:39 Order name: BMP; Complete Time: 20:47 [facility] 08/23 20:10 Order name: COVID-19/FLU A+B; Complete Time: 21:12 [facility] 08/23 20:52 Order name: Throat Culture [facility] 08/23 20:58 Order name: Urine Dipstick-Ancillary; Complete Time: 21:12 [facility] 08/23 20:59 Order name: Urine --Ancillary (enter results); Complete Time: 21:12 tt3 08/23 19:38 Order name: Saline Lock; Complete Time: 20:00 [facility] 08/23 19:38 Order name: Urine Test (obtain specimen); Complete Time: 20:59 [facility] Administered Medications: 19:52 Drug: Tylenol 650 mg Route: PO; vg1 20:59 Follow up: Response: No adverse reaction; Pain is decreased vg1 21:24 Drug: Rocephin (cefTRIAXone) 1 grams Route: IV; Rate: calculated rate; Site: right vg1 antecubital; 21:45 Follow up: Response: No adverse reaction; IV Status: Completed infusion vg1 Disposition Summary: 08/23/21 21:32 Discharge Ordered Location: Home [facility] Condition: Stable [facility] Diagnosis - Pneumonia [facility] Followup: [facility] - With: Private Physician - When: 2 - 3 days - Reason: Recheck today's complaints, Continuance of care, Re-evaluation by your physician Discharge Instructions: - Discharge Summary Sheet [facility] - Community-Acquired Pneumonia, Adult [facility] Forms: - Medication Reconciliation Form [facility] - Thank You Letter [facility] - Antibiotic Education [facility] - Prescription Opioid Use [facility] Prescriptions: - levofloxacin 750 mg Oral tablet - take 1 tablet by ORAL route once daily for 10 days; 10 tablet; Refills: 0, [facility] Product Selection Permitted - albuterol sulfate 90 mcg/actuation Inhalation HFA aerosol inhaler - inhale 1 puff by INHALATION route every 4 hours; 1 Pump; Refills: 0, Product [facility] Selection Permitted Addendum: 08/25/2021 08:40 Co-signature as Attending Physician, Andres Garay MD I agree with the assessment and s p3 plan of care. Signatures: Dispatcher [employer] EDMS Gerry Vuong PA PA jmm Wise, Tara, RN RN tw2 Marni Mcnulty RN RN vg1 Andres Garay MD MD sp3 Corrections: (The following items were deleted from the chart) 08/23 20:10 19:36 Influenza Screen (A ordered. EDMS EDMS 20:10 19:36 SARS-COV-2 RT PCR ordered. EDMS EDMS
--- NOTE | 2021-08-23 21:32 | ER ---
Nurse's Notes [facility] Name: Juany Payne Age: 26 yrs Sex: Female : 1995 Arrival Date: 08/23/2021 Time: 17:53 Bed 11 Private MD: Diagnosis: Pneumonia Presentation: 08/23 18:12 Chief complaint: Patient states: i have had this cough for the passed 2 weeks maybe 3. tw2 but i have been taking care of myself. this cough has gotten worse. and today i have been coughing up blood. i got covid tested and it was negative on August 10. Coronavirus screen: chills, cough unrelated to allergies, fatigue, fever, runny nose, sore throat, Client presents with at least one sign or symptom that may indicate coronavirus-19. Standard/surgical mask placed on the client. Provider contacted for isolation considerations. Ebola Screen: Patient denies travel to an Ebola-affected area in the 21 days before illness onset. Initial Sepsis Screen: Does the patient meet any 2 criteria? HR > 90 bpm. No. Patient's initial sepsis screen is negative. Does the patient have a suspected source of infection? No. Patient's initial sepsis screen is negative. Risk Assessment: Do you want to hurt yourself or someone else? Patient reports no desire to harm self or others. Onset of symptoms was August 23, 2021. 18:12 Method Of Arrival: Ambulatory tw2 18:12 Acuity: HARI 3 tw2 Triage Assessment: 18:15 General: Appears in no apparent distress. Behavior is calm, cooperative, appropriate tw2 for age. Pain: Complains of pain in uvula, left aspect of posterior pharynx and right aspect of posterior pharynx. EENT: Reports nasal congestion nasal discharge. Respiratory: Reports cough that is persistent. 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 - Social history:: Smoking status: Patient denies any tobacco usage or history of. Screenin:02 Abuse screen: Denies threats or abuse. Nutritional screening: Has had N/V for 3 or more vg1 days. Tuberculosis screening: No symptoms or risk factors identified. Fall Risk No fall in past 12 months (0 pts). No secondary diagnosis (0 pts). IV access (20 points). Ambulatory Aid- None/Bed Rest/Nurse Assist (0 pts). Gait- Normal/Bed Rest/Wheelchair (0 pts) Mental Status- Oriented to own ability (0 pts). Total Adair Fall Scale indicates No Risk (0-24 pts). Assessment: 20:00 General: Appears in no apparent distress. uncomfortable, Behavior is calm, cooperative. vg1 Pain: Complains of pain in head and throat Pain currently is 5 out of 10 on a pain scale. Pain began x2 weeks. Neuro: Level of Consciousness is awake, alert, obeys commands, Oriented to person, place, time, situation. Cardiovascular: Patient's skin is warm and dry. Respiratory: Reports cough that is productive, Airway is patent Respiratory effort is even, unlabored, Breath sounds are clear bilaterally. GI: Abdomen is round obese, Reports nausea, vomiting. : No signs and/or symptoms were reported regarding the genitourinary system. EENT: Throat is reddened. Derm: Skin is intact, is healthy with good turgor. Musculoskeletal: Circulation, motion, and sensation intact. 21:03 Reassessment: Patient appears in no apparent distress at this time. Patient and/or vg1 family updated on plan of care and expected duration. Pain level reassessed. Patient is alert, oriented x 3, equal unlabored respirations, skin warm/dry/pink. Vital Signs: 18:12 BP 117 / 82; Pulse 116; Resp 19; Temp 101.4(O); Pulse Ox 100% on R/A; Weight 92.99 kg tw2 (R); Height 5 ft. 5 in. (165.10 cm) (R); Pain 10/10; 20:02 BP 121 / 65; Pulse 108; Resp 18; Pulse Ox 99% ; vg1 21:03 BP 122 / 66; Pulse 92; Resp 17; Temp 99.9; Pulse Ox 100% ; vg1 18:12 Body Mass Index 34.11 (92.99 kg, 165.10 cm) tw2 18:12 but when i cough it is a 10/10 tw2 ED Course: 17:53 Patient arrived in ED. ds1 18:15 Triage completed. tw2 18:15 Arm band placed on. tw2 18:34 Gerry Vuong PA is PHCP. [facility] 18:34 Andres Garay MD is Attending Physician. [facility] 19:27 Marni Mcnulty, RN is Primary Nurse. vg1 19:52 Chest Single View XRAY In Process Unspecified. EDMS 19:55 Initial lab(s) drawn, by me, sent to lab. Inserted saline lock: 20 gauge in right vg1 antecubital area, using aseptic technique. Blood collected. 20:03 Patient has correct armband on for positive identification. Bed in low position. Call vg1 light in reach. Side rails up X 1. 21:45 No provider procedures requiring assistance completed. IV discontinued, intact, vg1 bleeding controlled, No redness/swelling at site. Pressure dressing applied. Administered Medications: 19:52 Drug: Tylenol 650 mg Route: PO; vg1 20:59 Follow up: Response: No adverse reaction; Pain is decreased vg1 21:24 Drug: Rocephin (cefTRIAXone) 1 grams Route: IV; Rate: calculated rate; Site: right vg1 antecubital; 21:45 Follow up: Response: No adverse reaction; IV Status: Completed infusion vg1 Outcome: 21:32 Discharge ordered by . [facility] 21:45 Discharged to home ambulatory. vg1 21:45 Condition: stable 21:45 Discharge instructions given to patient, Instructed on discharge instructions, follow up and referral plans. medication usage, Demonstrated understanding of instructions, follow-up care, medications, Prescriptions given X 2. 21:45 Patient left the ED. vg1 Signatures: Dispatcher [employer] EDMS Gerry Vuong PA PA jmm Sanford, Demi ds1 Venus Logan RN RN tw2 Marni Mcnulty, FELICITAS RN vg1
[2021-08-23 22:50] VITALS: BP 122/66; TEMP 99.9; O2SAT 100
--- OUTSIDE RECORDS SUMMARY | 2021-08-29 15:51 | XMS REPORT | Continuity of Care Document ---
:1995 Demographics Address [address] [place] [address] Home Phone [phone] Preferred Language British Marital Status Unknown Latter-Day Affiliation Unknown Race Unknown Additional Race(s) Unavailable Ethnic Group Unknown [facility] Address [address] [place] [address] [place] [id number] Care Team Providers Name Role Phone Unavailable Unavailable Unavailable Problems This patient has no known problems. Allergies, Adverse Reactions, Alerts This patient has no known allergies or adverse reactions. Medications This patient has no known medications. Procedures This patient has no known procedures. Encounters Start End Encounter Admission Attending Care Care Encounter Source Date/Time Date/Time Type Type Clinicians Facility Department ID 2018-01-02 2018-01-02 Outpatient [facility] [id number] [place] 00:00:00 00:00:00 Health 2017-12-21 2017-12-21 Emergency [facility] [id number] [place] 13:29:05 13:29:05 Health 2017-12-21 2017-12-21 Emergency [facility] [id number] [place] 11:36:16 11:36:16 Health Results This patient has no known results.
== END 2021-08-23 21:45 | disposition home or self-care (01) ==
LOC: ER 17:51
DX: J18.9 Pneumonia, unspecified organism (principal); Z20.822 Contact with and (suspected) exposure to COVID-19
CPT/HCPCS: 0240U; 36415; 71045; 80048; 81003; 81025; 85379; 87070; 87081; 96365; 99284